=== PATIENT | female | born 1995 | race Hispanic/Latino ===

== ENCOUNTER 2016-11-22 17:23 | Emergency (ER) | payer SELFPAY ==
[2016-11-22 17:54] LABS: Bilirubin Small (Negative); Blood, Urine Negative (Negative); Glucose, Urine (Dipstick) >=1000 mg/dL (Negative); Ketone, Urine 80 mg/dL (Negative); Nitrite Negative (Negative); Protein, Urine (Dipstick) Negative (Neg-Trace); Urobilinogen 0.2 mg/dL (0.2-1.0)
[2016-11-22 18:34] LABS: Anion Gap 9 mmol/L (-14-95); T. Carbon Dioxide 23.7 mmol/L (1.0-85.0); pH (Venous) 7.377 (7.35-7.45); vO2 Saturation-calc 65.4 % (0.0-100.0)
[2016-11-22 18:35] LABS: #Eosinphils 0.1 thou/uL (0.0-0.7); #Lymphocytes 0.8 thou/uL (1.20-3.40); #Monocytes 0.5 thou/uL (0.11-0.59); #Neutrophils 6.1 thou/uL (1.40-6.50); %Basophils 0.2 % (0.0-1.0); %Eosinophils 0.7 % (0.0-10.0); %Lymphocytes 10.5 % (21.0-51.0); %Monocytes 6.6 % (0.0-10.0); Hematocrit 49.6 % (36.0-47.0); Mean Platelet Volume 8.4 fL (7.4-10.4); Red Blood Cell (RBC) Count 5.44 mill/uL (4.20-5.40); White Blood Cell (WBC) Count 7.4 thou/uL (4.8-10.8)
[2016-11-22 19:00] LABS: ALT (SGPT) 16 U/L (8-55); AST (SGOT) 14 U/L (5-34); Alkaline Phosphatase 106 U/L (40-150); Anion Gap 18 mmol/L (10-20); BUN (Urea Nitrogen) 12 mg/dL (7.0-18.7); Bilirubin, Total 1.1 mg/dL (0.2-1.2); Calc. Creatinine Clearance 0 mL/min (70-130); Calcium 9.8 mg/dL (7.8-10.44); Carbon Dioxide 20 mmol/L (22-29); Chloride 98 mmol/L (98-107); Estimated GFR-MDRD Greater than 90; Globulin 3.9 g/dL (2.4-3.5); Lipase 6 U/L (8-78); Protein, Total 8.2 g/dL (6.0-8.3)
== END 2016-11-22 19:49 | disposition home or self-care (01) ==
LOC: ERS 17:23
DX: K52.9 Noninfective gastroenteritis and colitis, unspecified (principal); E03.9 Hypothyroidism, unspecified; E10.9 Type 1 diabetes mellitus without complications; E66.9 Obesity, unspecified; Z79.4 Long term (current) use of insulin
CPT/HCPCS: 36415; 36416; 80053; 81003; 81025; 82010; 82330; 82803; 83690; 85025; 99284

== ENCOUNTER 2016-12-05 12:11 | Emergency (ER) | payer SELFPAY ==
[2016-12-05 12:57] LABS: Bilirubin Negative (Negative); Blood, Urine Negative (Negative); Glucose, Urine (Dipstick) >=1000 mg/dL (Negative); Ketone, Urine > or equal to 80 mg/dL (Negative); Nitrite Negative (Negative); Protein, Urine (Dipstick) Negative (Neg-Trace); Urobilinogen 0.2 mg/dL (0.2-1.0)
[2016-12-05 13:32] LABS: #Monocytes 0.3 thou/uL (0.11-0.59); #Neutrophils 7.7 thou/uL (1.40-6.50); %Basophils 0.3 % (0.0-1.0); %Eosinophils 0.2 % (0.0-10.0); %Lymphocytes 11.1 % (21.0-51.0); %Monocytes 3.4 % (0.0-10.0); Hematocrit 46.8 % (36.0-47.0); Mean Platelet Volume 8.8 fL (7.4-10.4); Red Blood Cell (RBC) Count 4.99 mill/uL (4.20-5.40); White Blood Cell (WBC) Count 9.1 thou/uL (4.8-10.8)
[2016-12-05 14:16] LABS: ALT (SGPT) 24 U/L (8-55); AST (SGOT) 16 U/L (5-34); Alkaline Phosphatase 127 U/L (40-150); Anion Gap 27 mmol/L (10-20); BUN (Urea Nitrogen) 13 mg/dL (7.0-18.7); Bilirubin, Total 0.8 mg/dL (0.2-1.2); Calc. Creatinine Clearance 0 mL/min (70-130); Calcium 9.3 mg/dL (7.8-10.44); Chloride 95 mmol/L (98-107); Estimated GFR-MDRD 60; Globulin 3.3 g/dL (2.4-3.5); Lipase 13 U/L (8-78); Protein, Total 7.5 g/dL (6.0-8.3)
[2016-12-05 14:18] LABS: Carbon Dioxide 9 mmol/L (22-29); Troponin I Less than 0.010 ng/mL (< 0.028)
[2016-12-05 14:34] LABS: Anion Gap 14 mmol/L (-14-95); T. Carbon Dioxide 12.8 mmol/L (1.0-85.0); pH (Venous) 7.167 (7.35-7.45); vO2 Saturation-calc 78.8 % (0.0-100.0)
[2016-12-05] MEDS ORDERED: Insulin Regular 300 UNITS/3 ML VIAL ONE (14:37)
--- NOTE | 2016-12-05 14:40 | RAD ---
RADIOGRAPH CHEST 1 VIEW: HISTORY: 21-year-old female with nausea and emesis. FINDINGS: There are no air space densities, pulmonary edema, pneumothorax, or cardiomegaly. The lateral costo phrenic angles are sharp. IMPRESSION: No acute cardiopulmonary findings. mariam POS: CAROLANN
[2016-12-05] MEDS ORDERED: Insulin Regular 100 units/100 ml in NS IVPB ONE (14:45)
[2016-12-05 16:42] LABS: Anion Gap 16 mmol/L (10-20); BUN (Urea Nitrogen) 10 mg/dL (7.0-18.7); Calc. Creatinine Clearance 0 mL/min (70-130); Calcium 8.9 mg/dL (7.8-10.44); Carbon Dioxide 17 mmol/L (22-29); Chloride 103 mmol/L (98-107); Estimated GFR-MDRD 87
== END 2016-12-05 17:25 | disposition left against medical advice (07) ==
LOC: ERS 12:11
DX: E10.10 Type 1 diabetes mellitus with ketoacidosis without coma (principal); E03.9 Hypothyroidism, unspecified; E66.9 Obesity, unspecified
CPT/HCPCS: 36415; 36416; 71010; 80053; 81003; 81025; 82010; 82330; 82553; 82803; 83690; 84484; 85025; 93005; 94760; 96365; 96366; 96376; J1815; J7050

== ENCOUNTER 2017-04-14 21:28 | Observation (INO) | payer MEDICAID, SELFPAY ==
[2017-04-14 22:43] LABS: ALT (SGPT) 13 U/L (8-55); AST (SGOT) 13 U/L (5-34); Albumin 4.3 g/dL (3.5-5.0); Alkaline Phosphatase 107 U/L (40-150); Anion Gap 16 mmol/L (10-20); BUN (Urea Nitrogen) 15 mg/dL (7.0-18.7); Bilirubin, Total 0.4 mg/dL (0.2-1.2); CK (CPK) 37 U/L (29-168); Calc. Creatinine Clearance 0 mL/min (70-130); Calcium 10.2 mg/dL (7.8-10.44); Carbon Dioxide 21 mmol/L (22-29); Chloride 100 mmol/L (98-107); Estimated GFR-MDRD 72; Globulin 3.7 g/dL (2.4-3.5); Glucose 357 mg/dL (70-105); Lipase 15 U/L (8-78); Magnesium 2.2 mg/dL (1.6-2.6); Potassium 3.9 mmol/L (3.5-5.1); Sodium 133 mmol/L (136-145)
[2017-04-14 22:45] LABS: Bilirubin Negative (Negative); Blood, Urine Negative (Negative); Clarity CLEAR (Clear); Glucose, Urine (Dipstick) >=1000 mg/dL (Negative); Leukocyte Negative (Negative); Nitrite Negative (Negative); Protein, Urine (Dipstick) Negative (Neg-Trace); Specific Gravity, Urine 1.028 (1.002-1.036); Urobilinogen 0.2 mg/dL (0.2-1.0)
[2017-04-14 22:46] LABS: CKMB 0.7 ng/mL (0-6.6); Troponin I Less than 0.010 ng/mL (< 0.028)
[2017-04-14 22:48] LABS: Pregnancy Test - Urine (BHCG) Negative (Negative); Pregu Control Background? CLEAR/WHITE (CLR/WHITE); Pregu Control Bar Appear? YES (CONTROL BAR); Specific Gravity 1.028 (1.002-1.036)
[2017-04-14 23:29] LABS: Hemoglobin A1c 12.4 % (4.0-6.0)
[2017-04-14] MEDS ORDERED: Insulin Regular 300 UNITS/3 ML VIAL ONE (23:31)
[2017-04-14 23:38] LABS: Base Excess-Venous -4.9 mmol/L (-30.0-30.0); Bicarbonate (HCO3v) 22.3 mmol/L (1.0-85.0); CO2 Tension (PvCO2) 47.7 mmHg (41.0-51.0); Calcium, Ionized 1.18 mmol/L (1.12-1.32); Hemoglobin - Calc 16.9 g/dL (12.0-18.0); O2 Tension (PvO2) 48.6 mmHg (35.0-45.0); Potassium 3.7 mmol/L (3.4-4.7); T. Carbon Dioxide 23.8 mmol/L (1.0-85.0); pH (Venous) 7.278 (7.35-7.45); vO2 Saturation-calc 78.4 % (0.0-100.0)
[2017-04-15] MEDS ORDERED: Dextrose 5% in Water 1,000 ML IV PRN (00:26)
[2017-04-15] MEDS ORDERED: HumaLOG 300 UNITS/3 ML VIAL SC PRN (00:26)
[2017-04-15] MEDS ORDERED: Dextrose 50% Abboject 50 ML SYRINGE SLOW IVP PRN (00:26)
[2017-04-15] MEDS ORDERED: Ondansetron PF 4 MG/2 ML Vial IVP PRN (00:28)
--- NOTE | 2017-04-15 02:25 | HP ---
PRIMARY CARE PHYSICIAN: [facility]. PRESENTING COMPLAINT: Vomiting. HISTORY OF PRESENT ILLNESS: A 22-year-old female with a history of brittle type 1 diabetes, who pres ented to the emergency room with multiple episodes of vomiting over the past couple of days, associat ed with nausea, palpitations, urinary frequency and mild shortness of breath. She states that she fe lt she was "going into DKA" and decided to come to the hospital. She denies fever, chills, abdominal pain. No history of chest pain. At the emergency room, her blood glucose was found to be 357. She also had a blood gas, which showed a pH of 7.278, pCO2 of 47.7 and pO2 of 48.6 (venous blood gas). Serum chemistry showed normal anion gap, carbon dioxide of 21 and sodium of 133 with potassium of 4.9 . She received 10 units of insulin regular and was admitted for hyperglycemia. PAST MEDICAL HISTORY: Type 1 diabetes mellitus. PAST SURGICAL HISTORY: and appendectomy. FAMILY HISTORY: Reviewed and noncontributory. SOCIAL HISTORY: Denies smoking cigarettes, drinking alcohol or using illicit drugs. ALLERGIES: PENICILLINS and SULFA MEDICATIONS. REVIEW OF SYSTEMS: Complete review of systems (10-point) was negative except as stated in HPI. PHYSICAL EXAMINATION: VITAL SIGNS: Stable. GENERAL: Not in acute distress, sitting comfortably in bed. HEENT: Normocephalic, atraumatic, EOMI, PERRLA, not pale, anicteric. Moist mucosa. CARDIOVASCULAR: S1 and S2 only. No murmurs, rubs or gallops. RESPIRATORY: Vesicular breath sounds bilaterally. No wheezes or rales. ABDOMEN: Soft, nontender, nondistended, bowel sounds normal. No hepatosplenomegaly. NEUROLOGIC: Alert and oriented to time, place and person. No focal deficits. SKIN: Warm, dry, well perfused. No rashes or lesions. MUSCULOSKELETAL: No skeletal abnormalities. Moves all extremities spontaneously. PSYCHIATRIC: Normal mood and affect. LABORATORY DATA: As stated in HPI. IMAGING: None. ASSESSMENT AND PLAN: 1. Hyperglycemia. The patient with a history of brittle diabetes mellitus, who has not been complet elton adherent with her home regimen and presenting with nausea, nonspecific symptoms and hyperglycemia . She has received subcutaneous insulin and blood glucose level is improving. We will admit under o bservation, give a bolus of IV fluids, and resume sliding scale insulin as well as her home regimen. We will monitor blood glucose before meals and at bedtime. Last hemoglobin A1c was 12.4 (04/14/2017 ). 2. Type 1 diabetes mellitus. Management as above. The patient will be educated on the importance o f using her insulin as directed.
[2017-04-15] MEDS ORDERED: Acetaminophen 325 MG TAB PO PRN (02:30)
[2017-04-15] MEDS ORDERED: Ibuprofen 600 MG TAB PO PRN (02:31)
[2017-04-15] MEDS: Sodium Chloride 0.9% 1,000 ML IV SCH ×3 (02:31→12:51)
[2017-04-15 03:35] VITALS: BMI 33.5
[2017-04-15 05:58] LABS: #Eosinphils 0.1 thou/uL (0.0-0.7); #Lymphocytes 2.6 thou/uL (1.20-3.40); #Monocytes 0.8 thou/uL (0.11-0.59); #Neutrophils 2.3 thou/uL (1.40-6.50); %Basophils 0.8 % (0.0-1.0); %Eosinophils 1.6 % (0.0-10.0); %Neutrophils 39.6 % (42.0-75.0); Mean Corpuscular HGB CONC 34.1 g/dL (32.0-36.0); Mean Corpuscular Hemoglobin 30.8 pg (27.0-31.0); Mean Corpuscular Volume 90.4 fl (81.0-99.0); Mean Platelet Volume 8.4 fL (7.4-10.4); Platelet Count 185 thou/uL (130-400); RBC Distribution Width 12.3 % (11.5-14.5); Red Blood Cell (RBC) Count 4.23 mill/uL (4.20-5.40); White Blood Cell (WBC) Count 5.8 thou/uL (4.8-10.8)
[2017-04-15 06:07] LABS: Anion Gap 9 mmol/L (10-20); BUN (Urea Nitrogen) 13 mg/dL (7.0-18.7); Calc. Creatinine Clearance 195 mL/min (70-130); Calcium 8.7 mg/dL (7.8-10.44); Carbon Dioxide 19 mmol/L (22-29); Chloride 108 mmol/L (98-107); Estimated GFR-MDRD Greater than 90; Glucose 194 mg/dL (70-105); Potassium 3.2 mmol/L (3.5-5.1); Sodium 133 mmol/L (136-145)
[2017-04-15] MEDS ORDERED: Potassium Chloride 40 MEQ in Sodium Chloride 0.9% 500 ML IVPB SCH (08:00)
[2017-04-15] MEDS ORDERED: Insulin Detemir 100 UNITS/ML 10 UNITS in Admixture Fee 1 EACH SC SCH (09:00)
[2017-04-15] MEDS ORDERED: Mupirocin 2% Ointment 22 GM Tube TOP SCH (09:00)
[2017-04-15] MEDS ORDERED: Insulin Detemir 100 UNITS/ML 30 UNITS in Pre-Filled Syringe 1 EACH SC SCH (09:00)
[2017-04-15] MEDS ORDERED: NPH, Human Insulin Isophane 300 UNIT/3 ML VIAL SC SCH (09:00)
[2017-04-15 10:53] VITALS: TEMP 99
[2017-04-15 12:05] VITALS: BP 116/70
[2017-04-15 12:39] LABS: Anion Gap 13 mmol/L (10-20); BUN (Urea Nitrogen) 11 mg/dL (7.0-18.7); Calc. Creatinine Clearance 164 mL/min (70-130); Calcium 8.8 mg/dL (7.8-10.44); Carbon Dioxide 19 mmol/L (22-29); Chloride 107 mmol/L (98-107); Estimated GFR-MDRD Greater than 90; Glucose 341 mg/dL (70-105); Magnesium 1.8 mg/dL (1.6-2.6); Phosphorus 3.5 mg/dL (2.3-4.7); Potassium 3.9 mmol/L (3.5-5.1); Sodium 135 mmol/L (136-145)
--- NOTE | 2017-04-15 13:37 | DIS ---
DATE OF ADMISSION: 04/14/2017 DATE OF DISCHARGE: 04/15/2017 CONDITION AT THE TIME OF DISCHARGE: Stable and improved. DISCHARGE DIAGNOSES: 1. Hyperglycemia and diabetes mellitus type 1, possibly early diabetic ketoacidosis. 2. Metabolic acidosis secondary to hyperglycemia and diabetes mellitus type 1. 3. Nausea. 4. Diabetes mellitus. DISCHARGE MEDICATIONS: Remain the same as home medication as follows: Humalog 5 units t.i.d. p.r.n. , Novolin N 50 units b.i.d., mupirocin ointment t.i.d. as needed. PRIMARY CARE PHYSICIAN: Luis Mancilla M.D. HOSPITAL COURSE: Ms. Trevino is a 22-year-old female with known history of diabetes mellmissy tus type 1 and diabetic ketoacidosis, who presented to the emergency room with complaints of vomiting , shortness of breath, nausea, palpitations, urinary frequency and felt that she was going into the D KA given her previous experiences. She was admitted with hyperglycemia with a blood sugar of more th an 350. She was mildly acidotic with bicarbonate of 21 without anion gap. She was not in diabetic k etoacidosis and was admitted under observation status on telemetry unit on IV fluids and insulin slid ing scale. Her hemoglobin A1c was found to be 12.4. HOSPITAL COURSE: The patient was continued on IV fluids and regular insulin and felt much better wit h resolution of her nausea. She never had any vomiting. Her potassium was low, which was supplement ed. I discussed her care with her and she reported that at one point of time she had the insulin pump wit h good control of her diabetes. Unfortunately, because of change of jobs and loss of insurance, she is not able to afford it anymore. She is, however, very regularly taking her Novolin N on a regular basis and she manages her blood sugars very carefully. She is getting it over the counter from [facility]. I encouraged her to go to [facility], Dr. Chávez, for reinstitution of her insulin pump a nd she will try. On the day of discharge, she is back to her baseline and her blood sugars have significantly improved . Her potassium level is 3.9. Her bicarbonate is still low at 19, but anion gap is 13. She will co ntinue to take her insulin and is eager to go home, so she will be discharged. PHYSICAL EXAMINATION: This morning include: VITAL SIGNS: Temperature 99, pulse 75, respirations 16, saturating 98% on room air, and blood pressu re 116/70. GENERAL: No acute distress, awake, alert, and oriented x3. CHEST: Clear to auscultation without any wheezing, rales or rhonchi. HEART: Rate and rhythm is regular. EXTREMITIES: She has a small scab on the right anterior gregory without any skin dehiscence or discharg e. She is instructed to put mupirocin on it and keep the area clean. At this time, she will be discharged back home with resumption of her home insulin. Discharge plan w as discussed with the patient, who verbalized understanding.
== END 2017-04-15 13:52 | disposition home or self-care (01) ==
LOC: ERS 21:28 → 2SW 04-15 01:58
PROVIDERS: ADMIT Internal Medicine; ATTEND Internal Medicine
DX: E10.10 Type 1 diabetes mellitus with ketoacidosis without coma (principal); Z88.0 Allergy status to penicillin; Z88.2 Allergy status to sulfonamides; Z88.5 Allergy status to narcotic agent; Z88.8 Allergy status to other drugs, medicaments and biological substances; Z91.018 Allergy to other foods; Z90.49 Acquired absence of other specified parts of digestive tract
CPT/HCPCS: 36415; 36416; 80048; 80053; 81003; 81025; 82010; 82330; 82553; 82803; 83036; 83690; 83735; 83930; 84100; 84484; 85014; 85025; 96360; 96361; 96365; 96366; 96372; G0378; J1815; J3480; J7050

== ENCOUNTER 2017-09-29 21:32 | Emergency (ER) | payer SELFPAY ==
[2017-09-29] MEDS ORDERED: Lidocaine 2% Jelly 5 ML TUBE ONE (22:38)
== END 2017-09-29 23:06 | disposition home or self-care (01) ==
LOC: ERS 21:32
DX: B00.9 Herpesviral infection, unspecified (principal); E66.9 Obesity, unspecified; E03.9 Hypothyroidism, unspecified; E10.9 Type 1 diabetes mellitus without complications; F32.9 Major depressive disorder, single episode, unspecified; Z79.4 Long term (current) use of insulin; Z79.899 Other long term (current) drug therapy
CPT/HCPCS: 99283

== ENCOUNTER 2017-10-09 20:01 | Inpatient (IN) | payer SELFPAY ==
[2017-10-09 21:32] LABS: Base Excess-Venous -11.5 mmol/L (0 (+/- 2.5)); Bicarbonate (HCO3v) 12.7 mmol/L (1.0-85.0); CO2 Tension (PvCO2) 25.7 mmHg (41.0-51.0); Calcium, Ionized 1.12 mmol/L (1.12-1.32); Hemoglobin - Calc 17.4 g/dL (12.0-18.0); O2 Tension (PvO2) 107.4 mmHg (35.0-45.0); Potassium 5.1 mmol/L (3.4-4.7); T. Carbon Dioxide 13.5 mmol/L (1.0-85.0); pH (Venous) 7.303 (7.35-7.45); vO2 Saturation-calc 97.8 % (94-98)
[2017-10-09 21:53] LABS: #Lymphocytes 1.1 thou/uL (1.20-3.40); #Monocytes 0.5 thou/uL (0.11-0.59); #Neutrophils 6.7 thou/uL (1.40-6.50); %Basophils 0.3 % (0.0-1.0); %Eosinophils 0.3 % (0.0-10.0); %Lymphocytes 13.3 % (21.0-51.0); %Monocytes 5.7 % (0.0-10.0); %Neutrophils 80.4 % (42.0-75.0); Mean Corpuscular HGB CONC 34.4 g/dL (32.0-36.0); Mean Corpuscular Hemoglobin 30.1 pg (27.0-31.0); Mean Corpuscular Volume 87.5 fL (78.0-98.0); Mean Platelet Volume 8.2 fL (7.4-10.4); Platelet Count 207 thou/uL (130-400); RBC Distribution Width 12.1 % (11.5-14.5); Red Blood Cell (RBC) Count 5.33 mill/uL (4.20-5.40); White Blood Cell (WBC) Count 8.3 thou/uL (4.8-10.8)
[2017-10-09 22:15] LABS: ALT (SGPT) 31 U/L (8-55); AST (SGOT) 14 U/L (5-34); Albumin 4.9 g/dL (3.5-5.0); Alkaline Phosphatase 126 U/L (40-150); Anion Gap 28 mmol/L (10-20); BUN (Urea Nitrogen) 33 mg/dL (7.0-18.7); Bilirubin, Total 0.6 mg/dL (0.2-1.2); Calc. Creatinine Clearance 0 mL/min (70-130); Calcium 10.6 mg/dL (7.8-10.44); Carbon Dioxide 12 mmol/L (22-29); Chloride 97 mmol/L (98-107); Estimated GFR-MDRD 57; Globulin 4.1 g/dL (2.4-3.5); Glucose 385 mg/dL (70-105); Magnesium 2.2 mg/dL (1.6-2.6); Phosphorus 5.4 mg/dL (2.3-4.7); Potassium 5.4 mmol/L (3.5-5.1); Sodium 132 mmol/L (136-145)
[2017-10-09] MEDS ORDERED: Insulin Regular 100 units/100 ml in NS IVPB SCH (22:45)
[2017-10-09] MEDS ORDERED: Aspirin/APAP/Caffeine Tab (Excedrin Migraine) PO SCH (23:00)
[2017-10-09 23:06] LABS: Bilirubin Moderate (Negative); Blood, Urine Negative (Negative); Clarity CLOUDY (Clear); Glucose, Urine (Dipstick) 250 mg/dL (Negative); Leukocyte Moderate (Negative); Nitrite Negative (Negative); Protein, Urine (Dipstick) 100 mg/dL (Neg-Trace); Specific Gravity, Urine 1.023 (1.002-1.036); Urobilinogen 0.2 mg/dL (0.2-1.0)
[2017-10-09 23:08] LABS: Bacteria/HPF 1+ HPF (None Seen); Pathc Cast-AUWi Flag 1.59 (0-2.49); RBC/HPF 0-3 HPF (0-3); Yeast-AUWi Flag 21.2 (0-25.0)
[2017-10-09 23:09] LABS: Hyaline Casts/LPF 4-6 HYALINE CAST LPF (0-3 Hyaline)
[2017-10-10] MEDS ORDERED: Dextrose 5 %-0.45 % NaCl 1,000 ML IV PRN (01:08)
[2017-10-10] MEDS ORDERED: Sodium Chloride 0.9% 1,000 ML IV PRN ×4 (01:08)
[2017-10-10] MEDS ORDERED: D5 1/2 NS w/20 mEq KCL 1,000 ML IV PRN (01:08)
[2017-10-10] MEDS ORDERED: CCU Electrolyte Replacement 1 EACH IVPB ONE (01:08)
[2017-10-10] MEDS ORDERED: NS 0.9% w/ 20 MEQ KCL 1,000 ML IV PRN ×2 (01:08)
[2017-10-10] MEDS ORDERED: Milk Of Magnesia 30 ML UDCUP PO PRN (01:09)
[2017-10-10] MEDS ORDERED: Ondansetron ODT 4 MG TAB PO PRN (01:09)
[2017-10-10] MEDS ORDERED: Calcium Carbonate 500 MG ChewTAB PO PRN (01:09)
[2017-10-10] MEDS ORDERED: Mag-Al 1200 mg/1200 mg/30 ML UDCUP PO PRN (01:09)
[2017-10-10] MEDS ORDERED: Ondansetron HCl/PF 4 MG/2 ML Vial IVP PRN (01:09)
[2017-10-10] MEDS ORDERED: Senokot 8.6 MG TAB PO PRN (01:09)
[2017-10-10 01:33] LABS: BHCG - Serum Negative (NEGATIVE); Pregs Control Background? CLEAR/WHITE (CLR/WHITE); Pregs Control Bar Appear? YES (CONTROL BAR)
[2017-10-10] MEDS ORDERED: Potassium Phosphate 9 MMOL in Sodium Chloride 0.9% 100 ML IVPB PRN (01:36)
[2017-10-10] MEDS ORDERED: Magnesium Oxide 400 MG TAB PO PRN ×2 (01:36)
[2017-10-10] MEDS ORDERED: Potassium Chloride 20 MEQ TAB PO PRN (01:36)
[2017-10-10] MEDS ORDERED: Potassium Phosphate 15 MMOL in Sodium Chloride 0.9% 250 ML 250 ML IV PRN (01:36)
[2017-10-10] MEDS ORDERED: Magnesium 2 GM/NS 0.9% 100 ML 2 GM in Premix Bag 1 BAG IVPB PRN (01:36)
[2017-10-10] MEDS ORDERED: Potassium Phosphate 12 MMOL in Sodium Chloride 0.9% 250 ML 250 ML IV PRN (01:36)
[2017-10-10] MEDS ORDERED: Potassium Chloride 40 MEQ in Sodium Chloride 0.9% 250 ML 250 ML IVPB PRN (01:36)
[2017-10-10] MEDS ORDERED: CCU ELECTROLYTE REPLACEMENT PROTOCOL FS PRN (01:36)
[2017-10-10] MEDS ORDERED: Potassium Chloride 40 MEQ in Premix Bag 1 BAG IVPB PRN (01:36)
[2017-10-10 02:15] LABS: Anion Gap 26 mmol/L (10-20); BUN (Urea Nitrogen) 26 mg/dL (7.0-18.7); Calc. Creatinine Clearance 0 mL/min (70-130); Calcium 9.7 mg/dL (7.8-10.44); Chloride 102 mmol/L (98-107); Estimated GFR-MDRD 65; Glucose 405 mg/dL (70-105); Sodium 132 mmol/L (136-145)
[2017-10-10 02:57] LABS: Carbon Dioxide 9 mmol/L (22-29)
[2017-10-10] MEDS ORDERED: Lidocaine 1% PF 5 ML VIAL ONE ×2 (03:33→03:34)
[2017-10-10] MEDS ORDERED: Ondansetron ODT 4 MG TAB ONE (05:48)
[2017-10-10 06:09] LABS: Anion Gap 22 mmol/L (10-20); BUN (Urea Nitrogen) 24 mg/dL (7.0-18.7); Calc. Creatinine Clearance 0 mL/min (70-130); Calcium 9.4 mg/dL (7.8-10.44); Chloride 105 mmol/L (98-107); Estimated GFR-MDRD 73; Glucose 305 mg/dL (70-105); Potassium 4.3 mmol/L (3.5-5.1); Sodium 132 mmol/L (136-145)
[2017-10-10 06:18] LABS: Carbon Dioxide 9 mmol/L (22-29)
--- NOTE | 2017-10-10 07:04 | HP ---
CHIEF COMPLAINT: Nausea with elevated blood sugar. HISTORY OF PRESENT ILLNESS: The patient is a 22-year-old female with brittle type 1 diabetes, presen lola to the hospital with above complaints. The patient has a long history of diabetes mellitus type 1. She is currently on 65 units Lantus twic e a day along with sliding scale. She denies any noncompliance with her insulin. She started notici ng that her blood sugars were running high in 300s range. She also felt nauseous and had several epi sodes of vomiting. There was mild abdominal cramping; however, she denies any diarrhea, constipation , hematemesis, dysuria, hematuria, urgency, altered mentation, chest pain, or focal neurologic defici t. In the emergency room, her vital signs showed temperature 98.9, respiration 18, pulse rate of 115 wit h a blood pressure 141/91 with O2 saturation 96% on room air. Her workup was consistent with diabeti c ketoacidosis with ketones of 7.69, bicarbonate of 12, potassium 5.4 with sodium 132. Her BUN was e levated at 33 with creatinine 1.1. She was started on insulin drip per diabetic ketoacidosis protoco l. PAST MEDICAL HISTORY: 1. Brittle type 1 diabetes. 2. History of diabetic ketoacidosis in the past. The last episode at this facility was in 04/08. 3. Hypothyroidism. PAST SURGICAL HISTORY: 1. . 2. Appendectomy. ALLERGIES: Patient is allergic to PENICILLIN and SULFA. MEDICATIONS: As discussed above. She also takes levothyroxine. SOCIAL HISTORY: No smoking, alcohol, or drug use. FAMILY HISTORY: Negative for heart disease. REVIEW OF SYSTEMS: The following complete review of systems was negative, unless otherwise mentioned in the HPI or below: Constitutional: Weight loss or gain, ability to conduct usual activities. Sk in: Rash, itching. Eyes: Double vision, pain. ENT/Mouth: Nose bleeding, neck stiffness, pain, te nderness. Cardiovascular: Palpitations, dyspnea on exertion, orthopnea. Respiratory: Shortness of breath, wheezing, cough, hemoptysis, fever or night sweats. Gastrointestinal: Poor appetite, abdom inal pain, heartburn, nausea, vomiting, constipation, or diarrhea. Genitourinary: Urgency, frequenc y, dysuria, nocturia. Musculoskeletal: Pain, swelling. Neurologic/Psychiatric: Anxiety, depressio n. Allergy/Immunologic: Skin rash, bleeding tendency. PHYSICAL EXAMINATION: VITAL SIGNS: As discussed above. GENERAL: A 22-year-old female in mild distress due to generalized weakness as well as abdominal cram ping. HEENT: Head atraumatic, normocephalic. Sclerae are anicteric. Dry mucous membrane. No oral lesion . NECK: Supple. No JVD, no carotid bruit. LUNGS: Clear to auscultation bilaterally. No wheezing, rales, or rhonchi. HEART: S1, S2 present. Regular rate and rhythm. No murmur, rubs, or gallops. ABDOMEN: Soft. Bowel sounds present. There was mild tenderness on deep palpation. There was no re bound or guarding. EXTREMITIES: No edema or calf tenderness. NEUROLOGIC: Grossly nonfocal. Moves all four extremities. PSYCHIATRY: Alert, awake, oriented x3. SKIN: Warm and dry. LYMPH NODES: No palpable lymph nodes in the neck. PERIPHERAL VASCULAR: Radial pulses palpable bilaterally. MUSCULOSKELETAL: No joint swelling or tenderness. LABORATORY AND X-RAY FINDINGS: As discussed above. Urinalysis showed 11-20 wbc's with 1+ bacteria. Sodium was 132 with potassium of 5.4, chloride of 97. EKG by my review showed sinus tachycardia wit hout significant ST-T wave changes. IMPRESSION: 1. Diabetic ketoacidosis. 2. History of diabetes mellitus type 1. 3. Acute kidney injury secondary to dehydration. 4. Hyperkalemia secondary to metabolic acidosis. 5. Hyponatremia, probably secondary to hyperglycemia. 6. Dehydration. 7. Suspected urinary tract infection. 8. Nausea and vomiting secondary to diabetic ketoacidosis. PLAN: Patient will be monitored in the IMCU. Insulin drip will be continued. We will continue aggr essive IV hydration. Empiric antibiotics for UTI. Deep venous thrombosis prophylaxis. A central li ne was placed in the emergency room due to lack of IV access. Repeat base met every 4 hourly. Plan of care was discussed with the patient in detail. She stated understanding.
[2017-10-10] MEDS ORDERED: Acetaminophen 325 MG TAB ONE (08:31)
--- NOTE | 2017-10-10 08:40 | RAD ---
CHEST 1 VIEW: Date: 10/10/17 HISTORY: 22-year-old female with history of central line placement. COMPARISON: 12/05/16. FINDINGS: Right jugulovenous catheter has been placed with the tip of the line extending down to near the regio n of the right atrium. No pneumothorax or pleural effusion, or other acute intrathoracic disease. IMPRESSION: Jugulovenous catheter right central line placement with the tip extending down to near the region of the right atrium. POS: OFF
[2017-10-10 10:38] LABS: Anion Gap 15 mmol/L (10-20); BUN (Urea Nitrogen) 21 mg/dL (7.0-18.7); Calc. Creatinine Clearance 0 mL/min (70-130); Calcium 9.1 mg/dL (7.8-10.44); Carbon Dioxide 17 mmol/L (22-29); Chloride 108 mmol/L (98-107); Estimated GFR-MDRD 88; Glucose 88 mg/dL (70-105); Potassium 4.7 mmol/L (3.5-5.1); Sodium 135 mmol/L (136-145)
[2017-10-10] MEDS ORDERED: NPH, Human Insulin Isophane 300 UNIT/3 ML VIAL SC STA (10:55)
[2017-10-10] MEDS ORDERED: Dextrose 5% in Water 1,000 ML IV PRN (10:56)
[2017-10-10] MEDS ORDERED: HumaLOG 300 UNITS/3 ML VIAL SC PRN (10:56)
[2017-10-10] MEDS ORDERED: Dextrose 50% Abboject 50 ML SYRINGE SLOW IVP PRN (10:56)
[2017-10-10] MEDS: Sodium Chloride 0.45% 1,000 ML IV SCH ×2 (11:25→18:14)
[2017-10-10] MEDS: Famotidine 20 MG TAB PO SCH ×2 (11:27→20:07)
[2017-10-10] MEDS: Heparin 5,000 UNITS/ML VIAL SC SCH ×2 (11:28→20:09)
[2017-10-10 12:20] VITALS: BMI 34.4
[2017-10-10] MEDS: HumaLOG 300 UNITS/3 ML VIAL SC PRN (12:37)
[2017-10-10] MEDS: Acetaminophen 325 MG TAB PO PRN ×2 (12:49→20:06)
[2017-10-10] MEDS ORDERED: Prevnar 13-Val Conj/PF 0.5 ML SYRINGE IM ONE (13:30)
--- NOTE | 2017-10-10 14:27 | PDOC.PN ---
- Subjective Encounter Start Date: 10/10/17 Encounter Start Time: 12:00 Subjective: is awake, no sob or trouble urinating -: no chest pain -: says she is compliant with insulin regimen at home - Objective Resuscitation Status: Resuscitation Status FULL:Full Resuscitation MAR Reviewed: Yes Vital Signs & Weight: Vital Signs (12 hours) Temp Pulse Resp Pulse Ox 10/10/17 12:00 98.9 F 10/10/17 09:10 98.2 F 88 16 100 Weight Weight 188 lb 0.869 oz Most Recent Monitor Data Heart Rate from ECG 85 NIBP 110/75 NIBP BP-Mean 84 Respiration from ECG 20 SpO2 100 I&O: 10/09/17 10/10/17 10/11/17 06:59 06:59 06:59 Intake Total 680 Balance 680 Result Diagrams: 10/09/17 21:14 10/10/17 09:21 Additional Labs: Accuchecks 10/10/17 10/10/17 10/10/17 12:35 11:25 10:24 POC Glucose 184 H 140 H 104 10/10/17 10/10/17 10/10/17 09:23 08:38 07:42 POC Glucose 84 111 H 161 H 10/10/17 10/10/17 10/10/17 06:21 05:22 04:23 POC Glucose 223 H 263 H 276 H 10/10/17 10/10/17 10/10/17 03:19 01:47 00:51 POC Glucose 308 H 374 H 348 H 10/09/17 10/09/17 23:36 20:10 POC Glucose 301 H 277 H Phys Exam - Physical Examination HEENT: PERRLA, moist MMs Neck: no JVD, supple Respiratory: no wheezing, no rales Cardiovascular: RRR, no significant murmur Gastrointestinal: soft, non-tender, no distention, positive bowel sounds Musculoskeletal: no edema, pulses present Neurological: non-focal, moves all 4 limbs Psychiatric: normal affect, A&O x 3 Dx/Plan (1) DKA (diabetic ketoacidoses) Code(s): E13.10 - OTH DIABETES MELLITUS WITH KETOACIDOSIS WITHOUT COMA Status : Acute Qualifiers: Diabetes mellitus type: type 1 Diabetes mellitus complication detail: without coma Qualified Code(s): E10.10 - Type 1 diabetes mellitus with ketoacidosis without coma (2) Metabolic acidosis Code(s): E87.2 - ACIDOSIS Status: Acute (3) Obesity (BMI 30.0-34.9) Code(s): E66.9 - OBESITY, UNSPECIFIED Status: Chronic - Plan gap is closing down, is coming off insulin drip -: to start home dose lantus and coverage -: continue iv fluids for another 24hrs -: will watch for electrolytes -: dc plan in am, june tx to med floor * . Review of Systems - Medications/Allergies Allergies/Adverse Reactions: Allergies Allergy/AdvReac Type Severity Reaction Status Date / Time blueberry Allergy Unknown Hives Verified 04/15/17 03:32 morphine Allergy Unknown Rash Verified 04/15/17 03:32 amoxicillin Allergy Rash Verified 04/15/17 03:32 Penicillins Allergy Rash Verified 04/15/17 03:32 Sulfa (Sulfonamide Allergy Rash Verified 04/15/17 03:32 Antibiotics) sulfamethoxazole Allergy Rash Verified 04/15/17 03:32 [From Bactrim] trimethoprim [From Bactrim] Allergy Rash Verified 04/15/17 03:32 Medications: Current Medications Acetaminophen (Tylenol) 650 mg PO Q4H PRN PRN Reason: Headache/Fever or Pain Last Admin: 10/10/17 12:49 Dose: 650 mg Al Hydroxide/Mg Hydroxide (Maalox) 30 ml PO Q6H PRN PRN Reason: Heartburn or Indigestion Calcium Carbonate (Tums) 1,000 mg PO Q4H PRN PRN Reason: Heartburn or Indigestion Famotidine (Pepcid) 20 mg PO BID [facility] Last Admin: 10/10/17 11:27 Dose: 20 mg Glucagon (Glucagon) 1 mg IM PRN PRN PRN Reason: Hypoglycemia Heparin Sodium (Porcine) (Heparin) 5,000 units SC BID [facility] Last Admin: 10/10/17 11:28 Dose: 5,000 units Levofloxacin 500 mg/ Device 100 mls @ 100 mls/hr IVPB Q24HR [facility] Insulin Glargine 65 units/ (Miscellaneous Medication) 0.65 mls @ 0 mls/hr SC BID [facility] Sodium Chloride (1/2 Normal Saline) 1,000 mls @ 100 mls/hr IV .Q10H [facility] Last Admin: 10/10/17 11:25 Dose: 1,000 mls Insulin Human Lispro (Humalog) 0 units SC .AGGRESSIVE SLIDING PRN PRN Reason: Aggressive Correctional Scale Last Admin: 10/10/17 12:37 Dose: 3 units Insulin Human Lispro (Humalog) 0 units SC .BEDTIME SLIDING SC PRN PRN Reason: Bedtime Correctional Scale Ondansetron HCl (Zofran Odt) 4 mg PO Q6H PRN PRN Reason: Nausea/Vomiting Ondansetron HCl (Zofran) 4 mg IVP Q6H PRN PRN Reason: Nausea/Vomiting Senna (Senokot) 2 tab PO HSPRN PRN PRN Reason: Constipation Sodium Chloride (Flush - Normal Saline) 10 ml IVF Q12HR ELANA Last Admin: 10/10/17 11:28 Dose: 10 ml Sodium Chloride (Flush - Normal Saline) 10 ml IVF PRN PRN PRN Reason: Saline Flush
--- NOTE | 2017-10-10 15:53 | CON ---
DATE OF CONSULTATION: 10/10/2017 CONSULTING PHYSICIAN: Hospitalist group. REASON FOR CONSULTATION: Diabetic ketoacidosis - mandatory ICU consult. HISTORY OF PRESENT ILLNESS: This is a 22-year-old female, who presented last night DKA with blood velez gars in the 300s with a wide anion gap and ketones in the urine. She was placed on insulin drip per DKA protocol. The patient states she has been under intense stress lately. PAST MEDICAL HISTORY: 1. Diabetes mellitus type 1 diagnosed at age 15. 2. Multiple episodes of diabetic ketoacidosis in the past, hypothyroidism. 3. Recent diagnosis of cervical neoplasia in situ. PAST SURGICAL HISTORY: C-sections, appendectomy. ALLERGIES: PENICILLIN and SULFA. MEDICATIONS: She takes Lantus 65 units twice daily along with sliding scale. SOCIAL HISTORY: Nonsmoker, nondrinker. Does not use illicit drugs. She works at [employer]. FAMILY MEDICAL HISTORY: Unremarkable. REVIEW OF SYSTEMS: A 12-point review of systems was negative. PHYSICAL EXAMINATION: VITAL SIGNS: Temperature 98.2, pulse 92, blood pressure 122/62, O2 sat 98%, and respiratory rate 20. GENERAL: The patient is awake and alert and in no distress. HEENT: Unremarkable. NECK: Without adenopathy, JVD, or bruits. LUNGS: Clear anteriorly bilaterally. CARDIOVASCULAR: S1 and S2, regular, without murmur. ABDOMEN: Soft, nontender. EXTREMITIES: No clubbing, cyanosis, or edema. LABORATORY DATA: Sodium 135, potassium 4.7, chloride 108, CO2 of 17, BUN 21, creatinine 0.8, glucose 88. Current anion gap is 10. Last glucose 104, white blood cell count 8.3, hematocrit 46.6, platel et count 207. Beta hydroxybutyrate was 2. ASSESSMENT: 1. Diabetic now with closed anion gap. 2. Diabetes mellitus type 1. PLAN: 1. Convert over to her long-acting insulin regimen by tonight. 2. Continue with half normal saline. 3. Can probably transfer to floor later today.
[2017-10-10 18:30] LABS: Anion Gap 12 mmol/L (10-20); BUN (Urea Nitrogen) 14 mg/dL (7.0-18.7); Calc. Creatinine Clearance 168 mL/min (70-130); Carbon Dioxide 18 mmol/L (22-29); Chloride 106 mmol/L (98-107); Estimated GFR-MDRD Greater than 90; Glucose 110 mg/dL (70-105); Potassium 3.9 mmol/L (3.5-5.1); Sodium 132 mmol/L (136-145)
[2017-10-10] MEDS: Insulin Glargine 65 UNITS in Pre-Filled Syringe 1 EACH SC SCH (20:10)
[2017-10-10] MEDS ORDERED: HYDROcodone/Acetaminophen 5/325 mg Tablet PO PRN (22:08)
[2017-10-10] MEDS: HYDROcodone/Acetaminophen 5/325 mg Tablet PO PRN (22:20)
[2017-10-11] MEDS: HYDROcodone/Acetaminophen 5/325 mg Tablet PO PRN (03:43)
[2017-10-11 04:17] LABS: #Eosinphils 0.1 thou/uL (0.0-0.7); #Lymphocytes 2.2 thou/uL (1.20-3.40); #Monocytes 0.4 thou/uL (0.11-0.59); #Neutrophils 2.1 thou/uL (1.40-6.50); %Basophils 0.6 % (0.0-1.0); %Eosinophils 1.1 % (0.0-10.0); %Lymphocytes 45.9 % (21.0-51.0); %Monocytes 8.4 % (0.0-10.0); Hemoglobin 12.4 g/dL (12.0-16.0); Mean Corpuscular HGB CONC 34.7 g/dL (32.0-36.0); Mean Corpuscular Hemoglobin 30.7 pg (27.0-31.0); Mean Corpuscular Volume 88.4 fL (78.0-98.0); Mean Platelet Volume 7.7 fL (7.4-10.4); Platelet Count 146 thou/uL (130-400); RBC Distribution Width 12.1 % (11.5-14.5); Red Blood Cell (RBC) Count 4.05 mill/uL (4.20-5.40); White Blood Cell (WBC) Count 4.8 thou/uL (4.8-10.8)
[2017-10-11 04:40] LABS: Anion Gap 10 mmol/L (10-20); BUN (Urea Nitrogen) 13 mg/dL (7.0-18.7); Calc. Creatinine Clearance 151 mL/min (70-130); Calcium 8.7 mg/dL (7.8-10.44); Carbon Dioxide 23 mmol/L (22-29); Chloride 103 mmol/L (98-107); Estimated GFR-MDRD Greater than 90; Glucose 359 mg/dL (70-105); Sodium 132 mmol/L (136-145)
[2017-10-11] MEDS: HumaLOG 300 UNITS/3 ML VIAL SC PRN ×2 (05:34→12:34)
[2017-10-11] MEDS: Sodium Chloride 0.45% 1,000 ML IV SCH (05:36)
[2017-10-11] MEDS: Famotidine 20 MG TAB PO SCH (08:28)
[2017-10-11] MEDS: Heparin 5,000 UNITS/ML VIAL SC SCH (08:29)
[2017-10-11] MEDS: Insulin Glargine 65 UNITS in Pre-Filled Syringe 1 EACH SC SCH (08:29)
--- NOTE | 2017-10-11 12:39 | PDOC.PN ---
- Subjective Encounter Start Date: 10/11/17 Encounter Start Time: 07:25 Subjective: feels better - Objective Resuscitation Status: Resuscitation Status FULL:Full Resuscitation MAR Reviewed: Yes Vital Signs & Weight: Vital Signs (12 hours) Temp Pulse Resp BP Pulse Ox 10/11/17 11:51 98.4 F 66 18 128/85 96 10/11/17 08:00 97.9 F 68 16 128/80 95 Weight Weight 188 lb 0.869 oz Most Recent Monitor Data Heart Rate from ECG 85 NIBP 110/75 NIBP BP-Mean 84 Respiration from ECG 20 SpO2 100 I&O: 10/10/17 10/11/17 10/12/17 06:59 06:59 06:59 Intake Total 2064 Balance 2064 Result Diagrams: 10/11/17 03:54 10/11/17 03:54 Additional Labs: Accuchecks 10/11/17 10/11/17 10/10/17 10:56 04:08 19:27 POC Glucose 209 H 292 H 263 H 10/10/17 10/10/17 16:55 12:35 POC Glucose 106 184 H Phys Exam - Physical Examination HEENT: PERRLA, moist MMs Neck: no JVD, supple Respiratory: no wheezing, no rales Cardiovascular: RRR, no significant murmur Gastrointestinal: soft, no distention, positive bowel sounds Musculoskeletal: no edema, pulses present Neurological: non-focal, moves all 4 limbs Psychiatric: normal affect, A&O x 3 Dx/Plan (1) DKA (diabetic ketoacidoses) Code(s): E13.10 - OTH DIABETES MELLITUS WITH KETOACIDOSIS WITHOUT COMA Status : Resolved Qualifiers: Diabetes mellitus type: type 1 Diabetes mellitus complication detail: without coma Qualified Code(s): E10.10 - Type 1 diabetes mellitus with ketoacidosis without coma (2) Metabolic acidosis Code(s): E87.2 - ACIDOSIS Status: Resolved (3) Obesity (BMI 30.0-34.9) Code(s): E66.9 - OBESITY, UNSPECIFIED Status: Chronic - Plan hemostable -: may dc home if her mild abd colic is resolved and has passed bm -: to f/u with her PCP in 1 week * .
[2017-10-11] MEDS ORDERED: Bisacodyl 10 MG SUPP PR PRN (12:40)
[2017-10-11 15:29] VITALS: BP 113/73; TEMP 98.1
--- NOTE | 2017-10-11 22:26 | DIS ---
DATE OF ADMISSION: 10/10/2017 DATE OF DISCHARGE: 10/11/2017 DISCHARGE DISPOSITION: To home. PRIMARY DISCHARGE DIAGNOSES: Diabetic ketoacidosis, diabetes mellitus type 1, metabolic acidosis, ob esity. PROCEDURES DONE DURING HOSPITALIZATION: Chest x-ray done showed no acute infiltrate. Urine culture grew Enterococcus less than 5000 colony forming units per mL. H&H 12 and 35, platelet count 146. In itial serum bicarbonate was 12. Serum glucose of 385 on the day of admission. test was ne gative. Discharge serum bicarbonate is 23. Beta hydroxybutyrate levels were 7.69 on the day of admi ssion. DISCHARGE MEDICATIONS: The patient to continue NPH 50 units subcu twice daily and Humalog 5 units velez bcu 3 times daily, Levaquin 500 mg p.o. daily for another 4 days. ALLERGIES: Allergic to MORPHINE, AMOXICILLIN, PENICILLIN, SULFA, BLUEBERRY. DISCHARGE PLAN: The patient to follow up with primary care physician in 1 week. BRIEF COURSE DURING HOSPITALIZATION: The patient initially got admitted on the with complaints of nausea and elevated blood sugars at home. On arrival, the patient had beta hydroxybutyrate levels of 7.69 with serum sugars running more than 300 and serum bicarbonate of 12. She was placed on insu angel drip and admitted to [facility] under DKA protocol. The patient has responded well to above measures. She was empirically placed on Levaquin. Her urine cultures have grown less than 5000 colony forming Enterococcus. In view of her presenting symptoms and DKA with the patient being compliant with her medication, she is advised to continue Levaquin for another 4 days. She has remained hemodynamically stable, ambulating and eating well prior to discharge. Please see a [id number] documentation on [facility] [employer] for the day of discharge.
--- NOTE | 2017-10-13 16:56 | EKG ---
Test Reason : Blood Pressure : / mmHG Vent. Rate : 120 BPM Atrial Rate : 120 BPM P-R Int : 132 ms QRS Dur : 078 ms QT Int : 324 ms P-R-T Axes : 069 063 051 degrees QTc Int : 457 ms Sinus tachycardia Otherwise normal ECG Confirmed by AURA BLACK DO ([id number]), rewrite editor JOAQUIN ARAIZA ([id number]) on 10/13/2017 4:56:25 PM Referred By: Confirmed By:AURA BLACK DO
== END 2017-10-11 16:36 | disposition home or self-care (01) | DRG 638 ==
LOC: ERS 20:01 → ERHOLD 10-10 00:35 → CCU 10-10 09:05 → T4-B 10-10 15:08
PROVIDERS: ADMIT Internal Medicine; ATTEND Internal Medicine
DX: E10.10 Type 1 diabetes mellitus with ketoacidosis without coma (principal); N17.9 Acute kidney failure, unspecified; E87.1 Hypo-osmolality and hyponatremia; E66.9 Obesity, unspecified; Z88.1 Allergy status to other antibiotic agents; Z88.5 Allergy status to narcotic agent; Z88.0 Allergy status to penicillin; Z88.2 Allergy status to sulfonamides; Z91.018 Allergy to other foods; E03.9 Hypothyroidism, unspecified; D49.59 Neoplasm of unspecified behavior of other genitourinary organ; E87.5 Hyperkalemia; E86.0 Dehydration; Z68.34 Body mass index [BMI] 34.0-34.9, adult
CPT/HCPCS: 36415; 36416; 71045; 80048; 80053; 81003; 81015; 82010; 82330; 82803; 83735; 84100; 84703; 85025; 87086; 93005; J1644; J1815; J1956; J2001; J7050; Q0162

== ENCOUNTER 2018-03-23 16:11 | Inpatient (IN) | payer SELFPAY ==
[2018-03-23 16:44] LABS: Hemoglobin 17.3 g/dL (12.0-16.0); Mean Corpuscular HGB CONC 32.7 g/dL (32.0-36.0); Mean Corpuscular Volume 88.5 fL (78.0-98.0); RBC Distribution Width 12.1 % (11.5-14.5); Red Blood Cell (RBC) Count 5.99 mill/uL (4.20-5.40); White Blood Cell (WBC) Count 9.1 thou/uL (4.8-10.8)
[2018-03-23 16:54] LABS: ALT (SGPT) 21 U/L (8-55); AST (SGOT) 15 U/L (5-34); Albumin 4.9 g/dL (3.5-5.0); Alkaline Phosphatase 122 U/L (40-150); Anion Gap 20 mmol/L (10-20); BUN (Urea Nitrogen) 15 mg/dL (7.0-18.7); Bilirubin, Total 0.7 mg/dL (0.2-1.2); Calc. Creatinine Clearance 0 mL/min (70-130); Calcium 10.5 mg/dL (7.8-10.44); Carbon Dioxide 16 mmol/L (22-29); Chloride 98 mmol/L (98-107); Estimated GFR-MDRD 61; Globulin 4.5 g/dL (2.4-3.5); Glucose 318 mg/dL (70-105); Phosphorus 3.4 mg/dL (2.3-4.7); Potassium 4.6 mmol/L (3.5-5.1); Protein, Total 9.4 g/dL (6.0-8.3); Sodium 129 mmol/L (136-145)
[2018-03-23 17:20] LABS: Band 4 % (5-11); Lymphocytes 17 % (21-51); MDiff Complete? YES; Mean Platelet Volume 9.1 fL (7.4-10.4); Monocytes 13 % (0-10); Neutrophil 66 % (42-75); Platelet Morphology Comment PLT clumps seen-ADEQ
[2018-03-23 18:57] LABS: Bilirubin Large (Negative); Blood, Urine Negative (Negative); Clarity CLOUDY (Clear); Glucose, Urine (Dipstick) >=1000 mg/dL (Negative); Leukocyte Negative (Negative); Nitrite Negative (Negative); Protein, Urine (Dipstick) 100 mg/dL (Neg-Trace); Specific Gravity, Urine 1.034 (1.002-1.036)
[2018-03-23 18:59] LABS: Hyaline Casts/LPF 7-10 HYALINE CAST LPF (0-3 Hyaline)
[2018-03-23 19:11] LABS: Bacteria/HPF 1+ HPF (None Seen); RBC/HPF 0-3 HPF (0-3); Transitional Epithelial 0-3 HPF (0-3)
[2018-03-23] MEDS ORDERED: Sodium Chloride 0.9% 1,000 ML IV PRN ×4 (20:33)
[2018-03-23] MEDS ORDERED: Dextrose 5 %-0.45 % NaCl 1,000 ML IV PRN (20:33)
[2018-03-23] MEDS ORDERED: NS 0.9% w/ 20 MEQ KCL 1,000 ML/1,000 ML BAG IV PRN ×2 (20:33)
[2018-03-23] MEDS ORDERED: D5 1/2 NS w/20 mEq KCL 1,000 ML IV PRN (20:33)
[2018-03-23] MEDS ORDERED: Potassium Chloride 20 MEQ TAB PO PRN (20:34)
[2018-03-23] MEDS ORDERED: Potassium Phosphate 9 MMOL in Sodium Chloride 0.9% 100 ML IVPB PRN (20:34)
[2018-03-23] MEDS ORDERED: Dextrose 50% Abboject 50 ML SYRINGE SLOW IVP PRN (20:34)
[2018-03-23] MEDS ORDERED: Magnesium 2 GM/NS 0.9% 100 ML 2 GM in Premix Bag 1 BAG IVPB PRN (20:34)
[2018-03-23] MEDS ORDERED: Potassium Phosphate 15 MMOL in Sodium Chloride 0.9% 250 ML 250 ML IV PRN (20:34)
[2018-03-23] MEDS ORDERED: Potassium Chloride 40 MEQ in Premix Bag 1 BAG IVPB PRN (20:34)
[2018-03-23] MEDS ORDERED: Potassium Phosphate 12 MMOL in Sodium Chloride 0.9% 250 ML 250 ML IV PRN (20:34)
[2018-03-23] MEDS ORDERED: CCU ELECTROLYTE REPLACEMENT PROTOCOL FS PRN (20:34)
[2018-03-23] MEDS ORDERED: Potassium Chloride 40 MEQ in Sodium Chloride 0.9% 250 ML 250 ML IVPB PRN (20:34)
[2018-03-23] MEDS ORDERED: Magnesium Oxide 400 MG TAB PO PRN ×2 (20:34)
[2018-03-23] MEDS ORDERED: Ondansetron PF 4 MG/2 ML Vial IVP PRN (20:37)
[2018-03-23] MEDS ORDERED: Acetaminophen 325 MG TAB PO PRN (20:37)
--- NOTE | 2018-03-23 20:42 | RAD ---
PORTABLE CHEST: 03/23/18 HISTORY: Syncope. Dyspnea. COMPARISON: 12/05/16 study. Heart sizse and mediastinum are within normal limits. The lungs appear clear of any infiltrative proc ess. IMPRESSION: No active intrathoracic disease. POS: LISA
[2018-03-23 20:45] VITALS: BMI 34.1
[2018-03-23] MEDS ORDERED: ADD ELECTROLYTE REPLACEMENT SET TO PROFILE FS SCH (20:45)
[2018-03-23] MEDS ORDERED: HUMULIN R 100 UNITS in Sodium Chloride 0.9% 100 ML IVPB SCH (20:45)
[2018-03-23] MEDS ORDERED: Insulin Regular 300 UNITS/3 ML VIAL IVP SCH (20:45)
[2018-03-23 20:57] LABS: BHCG - Serum Negative (NEGATIVE); Pregs Control Background? CLEAR/WHITE (CLR/WHITE); Pregs Control Bar Appear? YES (CONTROL BAR)
[2018-03-23] MEDS ORDERED: Aspirin/APAP/Caffeine Tab (Excedrin Migraine) PO PRN (21:10)
[2018-03-23] MEDS: cefTRIAXone\\ROCEPHIN 1 GM in Sodium Chloride 0.9% 100 ML IVPB SCH (21:28)
[2018-03-23] MEDS: Dextrose 5% in Water 1,000 ML IV PRN (21:29)
--- NOTE | 2018-03-23 23:22 | HP ---
PRIMARY CARE DOCTOR: Rosaura Pandya MD CODE STATUS: Full code. TIME OF EVALUATION: 7:35 p.m. CHIEF COMPLAINT: Nausea and vomiting. HISTORY OF PRESENT ILLNESS: This is a 22-year-old female patient with past medical history of diabetes since she was 15. The patient came to the hospital after having nausea and vomiting for the past 2 days associated with some shortness of breath. No clear triggers. No alleviating factors. Diabetes was uncontrolled. She was found to be DKA, also she had some associated fever yesterday that was temperature to 102 last night at home and she was found to have a positive urine. We will treat the patient for urinary tract infection. The symptoms were generalized, severe. REVIEW OF SYSTEMS: CONSTITUTIONAL: The patient had fever, chills, generalized weakness. RESPIRATORY: No cough or sputum production. She reports some shortness of breath. CARDIOVASCULAR: No chest pain or palpitations. GASTROINTESTINAL: Nausea, vomiting, no diarrhea or abdominal pain. POLICY WRITER TYPIST: No dizziness, headache or feeling lightheaded. GENITOURINARY: No burning on urination. EXTREMITIES: No leg swelling. All other systems were reviewed and negative except for the findings mentioned above. PAST MEDICAL HISTORY: Hypothyroidism, diabetes, and obesity. SURGICAL HISTORY: , and appendectomy. PSYCH HISTORY: Anxiety. SOCIAL HISTORY: No alcohol, no drugs. No smoking history. Lives at home (with mother and daughter). FAMILY HISTORY: Reviewed, noncontributory for current presentation. KNOWN ALLERGIES: Amoxicillin, Bactrim oral, blueberries, penicillin and sulfa. REPORTED MEDICATIONS: 1. Lantus. 2. Humalog. 3. Levothyroxine. PHYSICAL EXAMINATION: VITAL SIGNS: Blood pressure 138/95 with heart rate 91, respiratory rate was 16, temperature 99, pain was 7/10, oxygen saturation 99 on room air. GENERAL APPEARANCE: The patient is alert, oriented, not in acute distress. HEENT: Eyes normal conjunctivae. Moist oral mucosa. Anicteric. No JVD. RESPIRATORY: Bilateral air entry. No rales. No wheezes. Symmetric expansion. CARDIOVASCULAR: Normal rate, regular rhythm. No murmurs, no gallops. No edema. ABDOMEN: Soft, normal bowel sounds. MUSCULOSKELETAL: Baseline range of motion and strength. No tenderness. SKIN: Warm, intact. No pallor. No rash. No redness. EXTREMITIES: Peripheral pulses are present. Capillary refill seems to be intact. NEURO: No evidence of any new focal weakness. Baseline speech. Cranial nerves seems to be intact. PSYCH: The patient is in good mood. No anxiety. Optimal judgment. IMAGING DATA: Chest x-ray was reviewed. The patient has no active intrathoracic disease. LABORATORY DATA: Labs were reviewed. The patient presented with white count 9.1, hemoglobin 17.3, MCV 88.5, platelet count TNP. Chemistry, sodium 129, potassium 4.6, chloride 98, carbon dioxide 16, anion gap 20, BUN 15, creatinine 1.1, GFR 61, glucose 318, calcium 10.5. Troponin was negative. Serum total protein 9.4, albumin 4.9, globulin 4.5. test was negative. The urine was positive for elevated white count 11 to 20. Beta hydroxybutyrate 4.25. ASSESSMENT AND PLAN: The patient will be placed in the hospital with following medical problems: 1. Diabetic ketoacidosis. The patient will be placed in diabetic ketoacidosis protocol, keep n.p.o. for now, aggressive hydration. We will place in IMCU. 2. Urinary tract infection. This is likely the reason why the patient might have been in diabetic ketoacidosis. She had some fever yesterday. Today, those symptoms are not present. The patient has been started on antibiotic. Cultures will need to be followed. We will reconcile medications and adjust treatment as needed. 3. Deep venous thrombosis prophylaxis. Job ID: [id number]
[2018-03-24] MEDS: Dextrose 5% in Water 1,000 ML IV PRN (03:58)
[2018-03-24 04:58] LABS: #Eosinphils 0.1 thou/uL (0.0-0.7); #Lymphocytes 2.6 thou/uL (1.20-3.40); #Monocytes 0.8 thou/uL (0.11-0.59); #Neutrophils 2.8 thou/uL (1.40-6.50); %Basophils 0.5 % (0.0-1.0); %Eosinophils 2.1 % (0.0-10.0); %Lymphocytes 40.9 % (21.0-51.0); %Monocytes 12.4 % (0.0-10.0); %Neutrophils 44.1 % (42.0-75.0); Hemoglobin 14.8 g/dL (12.0-16.0); Mean Corpuscular HGB CONC 33.9 g/dL (32.0-36.0); Mean Corpuscular Hemoglobin 30.1 pg (27.0-31.0); Mean Corpuscular Volume 88.8 fL (78.0-98.0); Platelet Count 190 thou/uL (130-400); Red Blood Cell (RBC) Count 4.91 mill/uL (4.20-5.40); White Blood Cell (WBC) Count 6.3 thou/uL (4.8-10.8)
[2018-03-24 05:09] LABS: Anion Gap 15 mmol/L (10-20); BUN (Urea Nitrogen) 12 mg/dL (7.0-18.7); Calc. Creatinine Clearance 154 mL/min (70-130); Calcium 9.3 mg/dL (7.8-10.44); Carbon Dioxide 16 mmol/L (22-29); Chloride 104 mmol/L (98-107); Estimated GFR-MDRD Greater than 90; Glucose 131 mg/dL (70-105); Potassium 3.5 mmol/L (3.5-5.1); Sodium 131 mmol/L (136-145)
[2018-03-24] MEDS ORDERED: Ondansetron ODT 4 MG TAB PO PRN (08:17)
[2018-03-24] MEDS ORDERED: Bisacodyl 5 MG TAB PO PRN (08:17)
[2018-03-24] MEDS ORDERED: Diabetic Tussin 200 MG/10 ML UDCUP PO PRN (08:17)
[2018-03-24] MEDS ORDERED: Senokot S 8.6-50 MG TAB PO PRN (08:17)
[2018-03-24] MEDS ORDERED: Cepastat Lozenges 1 LOZ PO PRN (08:17)
[2018-03-24] MEDS ORDERED: Dextrose 5% in Water 1,000 ML IV PRN (08:17)
[2018-03-24] MEDS ORDERED: Sodium Chloride 0.65% Nasal 44 ML BOT EA NARE PRN (08:17)
[2018-03-24] MEDS ORDERED: Loperamide HCl 2 MG CAP PO PRN (08:17)
[2018-03-24] MEDS ORDERED: hydrALAZINE 20 MG/ML VIAL SLOW IVP PRN (08:17)
[2018-03-24] MEDS ORDERED: Zolpidem Tartrate 5 MG TAB PO PRN (08:17)
[2018-03-24] MEDS ORDERED: Artificial Tears 18 DROP/0.9 ML EA EYE PRN (08:17)
[2018-03-24] MEDS ORDERED: Dextrose 50% Abboject 50 ML SYRINGE SLOW IVP PRN (08:17)
[2018-03-24] MEDS ORDERED: Eucerin (Mineral Oil/Petrolatum,White) 30 gm Jar TOP PRN (08:17)
[2018-03-24] MEDS ORDERED: HumaLOG 300 UNITS/3 ML VIAL SC PRN (08:17)
[2018-03-24] MEDS ORDERED: Loratadine 10 MG TAB PO PRN (08:17)
[2018-03-24] MEDS ORDERED: NPH, Human Insulin Isophane 300 UNIT/3 ML VIAL SC SCH (09:00)
[2018-03-24 09:53] LABS: Hemoglobin A1c 12.8 % (4.0-6.0)
[2018-03-24 10:06] LABS: Anion Gap 17 mmol/L (10-20); BUN (Urea Nitrogen) 10 mg/dL (7.0-18.7); Calc. Creatinine Clearance 167 mL/min (70-130); Calcium 9.5 mg/dL (7.8-10.44); Carbon Dioxide 13 mmol/L (22-29); Chloride 106 mmol/L (98-107); Estimated GFR-MDRD Greater than 90; Glucose 130 mg/dL (70-105); Magnesium 1.9 mg/dL (1.6-2.6); Phosphorus 3.4 mg/dL (2.3-4.7); Potassium 3.8 mmol/L (3.5-5.1); Sodium 132 mmol/L (136-145)
[2018-03-24] MEDS ORDERED: Ketorolac Tromethamine 30 MG/ML VIAL IVP PRN (10:10)
[2018-03-24] MEDS ORDERED: Ibuprofen 600 MG TAB PO PRN (10:11)
--- NOTE | 2018-03-24 11:16 | PDOC.PN ---
- Subjective Encounter Start Date: 03/24/18 Encounter Start Time: 09:45 -: old records requested/rev c/o headache, no nausea or vomiting, Patient seen and examined. No overnight events - Objective Resuscitation Status - Order Detail: 03/23/18 20:37 Resuscitation Status Routine Resuscitation Status: FULL: Full Resuscitation MAR Reviewed: Yes Vital Signs & Weight: Vital Signs (12 hours) Temp Pulse Ox 03/24/18 08:00 99 03/24/18 07:21 98.0 F 03/24/18 04:00 99.1 F 03/24/18 00:18 98.0 F Weight Weight 186 lb 8 oz Most Recent Monitor Data Heart Rate from ECG 68 NIBP 99/67 NIBP BP-Mean 77 Respiration from ECG 18 SpO2 98 I&O: 03/23/18 03/24/18 03/25/18 06:59 06:59 06:59 Intake Total 1920 Output Total 1000 Balance 920 Result Diagrams: 03/24/18 04:40 03/24/18 09:30 Additional Labs: Accuchecks 03/24/18 03/24/18 03/24/18 10:39 08:00 06:50 POC Glucose 133 H 138 H 138 H 03/24/18 03/24/18 03/24/18 05:31 04:25 03:25 POC Glucose 148 H 130 H 135 H 03/24/18 03/24/18 03/23/18 01:33 00:28 23:31 POC Glucose 133 H 128 H 127 H 03/23/18 03/23/18 03/23/18 22:33 20:56 20:04 POC Glucose 130 H 167 H 190 H 03/23/18 16:37 POC Glucose 295 H EKG Reviewed by me: Yes (nsr) Phys Exam - Physical Examination Constitutional: NAD HEENT: PERRLA, moist MMs, sclera anicteric Neck: no JVD, supple Respiratory: no wheezing, no rales, no rhonchi Cardiovascular: RRR, no significant murmur, no rub Gastrointestinal: soft, non-tender, no distention, positive bowel sounds Musculoskeletal: no edema, pulses present Neurological: non-focal, normal sensation, moves all 4 limbs Lymphatic: no nodes Psychiatric: normal affect, A&O x 3 Skin: no rash, normal turgor Dx/Plan (1) Dehydration Code(s): E86.0 - DEHYDRATION Status: Acute (2) Ketosis Code(s): E88.89 - OTHER SPECIFIED METABOLIC DISORDERS Status: Acute (3) Nausea & vomiting Code(s): R11.2 - NAUSEA WITH VOMITING, UNSPECIFIED Status: Acute (4) UTI (urinary tract infection) Status: Acute (5) Obesity (BMI 30.0-34.9) Code(s): E66.9 - OBESITY, UNSPECIFIED Status: Chronic (6) Type 1 diabetes mellitus Status: Chronic (7) Migraine Code(s): G43.909 - MIGRAINE, UNSP, NOT INTRACTABLE, WITHOUT STATUS MIGRAINOSUS Status: Acute - Plan cont current plan of care, continue antibiotics * continue rocephin * continue IVF * medication reviewed as below * symptomatic treatment * toradol and motrin as needed * repeat labs tomorrow * home medication started. Review of Systems - Review of Systems ENT: negative: Ear Pain, Ear Discharge, Nose Pain, Nose Discharge, Nose Congestion, Mouth Pain, Mouth Swelling, Throat Pain, Throat Swelling, Other Respiratory: negative: Cough, Dry, Shortness of Breath, Hemoptysis, SOB with Excertion, Pleuritic Pain, Sputum, Wheezing Cardiovascular: negative: chest pain, palpitations, orthopnea, paroxysmal nocturnal dyspnea, edema, light headedness, other Gastrointestinal: negative: Nausea, Vomiting, Abdominal Pain, Diarrhea, Constipation, Melena, Hematochezia, Other Genitourinary: negative: Dysuria, Frequency, Incontinence, Hematuria, Retention , Other Musculoskeletal: negative: Neck Pain, Shoulder Pain, Arm Pain, Back Pain, Hand Pain, Leg Pain, Foot Pain, Other - Medications/Allergies Allergies/Adverse Reactions: Allergies Allergy/AdvReac Type Severity Reaction Status Date / Time blueberry Allergy Unknown Hives Verified 03/23/18 20:40 morphine Allergy Unknown Rash Verified 03/23/18 20:40 amoxicillin Allergy Rash Verified 03/23/18 20:40 Penicillins Allergy Rash Verified 03/23/18 20:40 Sulfa (Sulfonamide Allergy Rash Verified 03/23/18 20:40 Antibiotics) sulfamethoxazole Allergy Rash Verified 03/23/18 20:40 [From Bactrim] trimethoprim [From Bactrim] Allergy Rash Verified 03/23/18 20:40 Medications: Current Medications Acetaminophen (Tylenol) 650 mg PO Q4H PRN PRN Reason: Headache/Fever/Mild Pain (1-3) Artificial Tears (Tears Naturale) 2 drop EA EYE PRN PRN PRN Reason: Dry Eyes Bisacodyl (Dulcolax) 10 mg PO DAILYPRN PRN PRN Reason: Constipation Dextrose/Water (Dextrose 50%) 25 gm SLOW IVP PRN PRN PRN Reason: Hypoglycemia Enoxaparin Sodium (Lovenox) 40 mg SC 0900 ELANA Famotidine (Pepcid) 20 mg PO BID ELANA Glucagon (Glucagon) 1 mg IM PRN PRN PRN Reason: Hypoglycemia Guaifenesin (Robitussin Sf) 200 mg PO Q4H PRN PRN Reason: Cough Hydralazine HCl (Apresoline) 10 mg SLOW IVP Q4H PRN PRN Reason: SBP > 180 and HR < 70 Ceftriaxone Sodium 1 gm/ (Sodium Chloride) 100 mls @ 200 mls/hr IVPB Q24HR ELANA Last Admin: 03/23/18 21:28 Dose: 100 mls Dextrose/Water (D5w) 1,000 mls @ 0 mls/hr IV .Q0M PRN PRN Reason: Hypoglycemia Insulin Glargine 50 units/ (Miscellaneous Medication) 0.5 mls @ 0 mls/hr SC HS ELANA Insulin Glargine 50 units/ (Miscellaneous Medication) 0.5 mls @ 0 mls/hr SC QAM ELAAN Ibuprofen (Motrin) 600 mg PO Q6H PRN PRN Reason: Pain Insulin Human Lispro (Humalog) 0 units SC .MODERATE SLIDING SC PRN PRN Reason: Moderate Correctional Scale Insulin Human Lispro (Humalog) 0 units SC .BEDTIME SLIDING SC PRN PRN Reason: Bedtime Correctional Scale Ketorolac Tromethamine (Toradol) 15 mg IVP Q6H PRN PRN Reason: Pain Stop: 03/29/18 10:11 Loperamide HCl (Imodium) 2 mg PO PRN PRN PRN Reason: Diarrhea/Loose Stools Loratadine (Claritin) 10 mg PO DAILYPRN PRN PRN Reason: Sinus Symptoms Mineral Oil/White Petrolatum (Eucerin Cream) 0 gm TOP BIDPRN PRN PRN Reason: Dry Skin Ondansetron HCl (Zofran Odt) 4 mg PO Q6H PRN PRN Reason: Nausea/Vomiting Senna/Docusate Sodium (Senokot S) 2 tab PO BID PRN PRN Reason: Constipation Sodium Chloride ([place] Nasal [place] 0.65%) 0 ml EA NARE QIDPRN PRN PRN Reason: Nasal Congestion Sodium Chloride (Flush - Normal Saline) 10 ml IVF Q12HR ELANA Sodium Chloride (Flush - Normal Saline) 10 ml IVF PRN PRN PRN Reason: Saline Flush Throat Lozenges (Cepastat Lozenges) 1 balbir PO Q2H PRN PRN Reason: Sore Throat Zolpidem Tartrate (Ambien) 5 mg PO HSPRN PRN PRN Reason: Insomnia
--- NOTE | 2018-03-24 12:12 | CON ---
DATE OF CONSULTATION: 03/24/2018 SERVICE: Pulmonary Medicine. REASON FOR CONSULT: IMCU patient. HISTORY OF PRESENT ILLNESS: The patient is a 22-year-old female with past medical history significant for type 1 diabetes mellitus. She takes her insulin as directed. She had 1-2 day history of increasing nausea, vomiting, abdominal discomfort, which was periumbilical, and a fever of 102. She also had increasing shortness of breath, palpitations, and overwhelming sense of fatigue. She woke up from the sleep in the middle of the night and had increasing shortness of breath and presented to the emergency department. This is a little different than her typical DKA presentations. Typically, she can feel them coming on for a couple of days at a time, but on this occasion, it came on fairly abruptly. Either way, she presented to the emergency department. There were some laboratory findings consistent with mild DKA. Overnight, she was placed on insulin drip and rehydrated. Her anion gap cleared overnight. This morning, she had an appetite and she ate food. She kept it down. There has been no interval change to her condition otherwise. PAST MEDICAL HISTORY: 1. Type 1 diabetes mellitus. 2. Hypothyroidism. PAST SURGICAL HISTORY: 1. section. 2. Appendectomy. SOCIAL HISTORY: Negative for alcohol, tobacco, or illicit drug use. She lives at home with her mother and daughter. She has no exposure to chemicals, dust, asbestos, or tuberculosis. FAMILY HISTORY: Noncontributory. ALLERGIES: AMOXICILLIN, BACTRIM, BLUEBERRIES, AND SULFA. MEDICATIONS: List of her inpatient medications was reviewed. Multiple updates were made at this time. REVIEW OF SYSTEMS: General, head, ears, eyes, nose, throat, cardiovascular, respiratory, GI, , musculoskeletal, neurologic, and skin are negative except as mentioned in the HPI. PHYSICAL EXAMINATION: VITAL SIGNS: Afebrile, pulse 68, blood pressure 99/67, respirations 18, and saturation 98% on room air. GENERAL: The patient is awake and alert, in no apparent distress. LUNGS: Decent air entry. There is no prolonged expiratory phase or wheezing present. HEART: Normal rate, regular. ABDOMEN: Soft, nontender, and nondistended. Bowel sounds are positive. MUSCULOSKELETAL: No cyanosis or clubbing. No pitting in the bilateral lower extremities. NEUROLOGIC: Grossly nonfocal. LABORATORY DATA: WBC 6.3, hemoglobin 14.8, platelets 190,000. Basic metabolic profile is essentially unremarkable except for a sodium that is up trending to 132. Bicarb 13, which is downtrending. Her anion gap is up trending to 17. Magnesium and phosphorous fall within normal limits. Hemoglobin A1c is 12.8. Urine is negative. Troponin is negative x1. Liver function studies are essentially unremarkable otherwise. Urinalysis is positive for glycosuria and ketonuria. There is large amount of bilirubin in the urine. There are some white blood cells. The leukocyte esterase is unremarkable. This was a clean-catch specimen. Beta-hydroxybutyric acid was 4.25, but has resolved to 0.9. ASSESSMENT: 1. Diabetic ketoacidosis, resolved. 2. Systemic inflammatory response syndrome with possible viral prodrome. 3. Type 1 diabetes mellitus. DISCUSSION AND PLAN: The patient is currently on antibiotics for possible urinary tract infection. She has been converted over to subcu insulin. If her gap continues to close and she clears her acidosis, she can be considered for transition to the floor. Pulmonary/Critical Care will continue to follow along for 24 hours. Job ID: [id number]
[2018-03-24] MEDS: Enoxaparin Sodium 40 MG/0.4 ML SYRINGE SC SCH (13:04)
[2018-03-24] MEDS: Sodium Chloride 0.9% 1,000 ML IV SCH ×2 (13:04→22:24)
[2018-03-24] MEDS: HumaLOG 300 UNITS/3 ML VIAL SC PRN ×2 (16:13→22:29)
[2018-03-24] MEDS ORDERED: Insulin Glargine 50 UNITS in Pre-Filled Syringe 1 EACH SC SCH (21:00)
[2018-03-24] MEDS: Famotidine 20 MG TAB PO SCH (22:24)
[2018-03-24] MEDS: cefTRIAXone\\ROCEPHIN 1 GM in Sodium Chloride 0.9% 100 ML IVPB SCH (22:44)
[2018-03-25 05:56] LABS: Anion Gap 12 mmol/L (10-20); BUN (Urea Nitrogen) 14 mg/dL (7.0-18.7); Calc. Creatinine Clearance 180 mL/min (70-130); Calcium 8.9 mg/dL (7.8-10.44); Carbon Dioxide 20 mmol/L (22-29); Chloride 108 mmol/L (98-107); Estimated GFR-MDRD Greater than 90; Glucose 184 mg/dL (70-105); Sodium 136 mmol/L (136-145)
[2018-03-25 07:57] VITALS: BP 111/65; TEMP 98.2
[2018-03-25] MEDS ORDERED: Insulin Glargine 50 UNITS in Pre-Filled Syringe 1 EACH SC SCH (09:00)
[2018-03-25] MEDS: Enoxaparin Sodium 40 MG/0.4 ML SYRINGE SC SCH (09:01)
[2018-03-25] MEDS: Famotidine 20 MG TAB PO SCH (09:02)
--- NOTE | 2018-03-25 11:07 | DIS ---
DATE OF ADMISSION: 03/23/2018 DATE OF DISCHARGE: 03/25/2018 PRIMARY CARE PHYSICIAN: [facility] Call Admission. DISCHARGE DISPOSITION: Home. PRIMARY DISCHARGE DIAGNOSES: 1. Acute migraine headache. 2. Urinary tract infection. 3. Nausea and vomiting, resolved. 4. Dehydration, corrected. 5. Ketosis, resolved. SECONDARY DISCHARGE DIAGNOSES: 1. Diabetes, type 1, on insulin. 2. Obesity. 3. Hypothyroidism. PRIMARY PROCEDURE/OPERATION: None. RADIOLOGICAL INVESTIGATION: Chest x-ray, normal. SIGNIFICANT LABORATORY DATA: WBC 6.3, hemoglobin 14.8, and platelet 190. Sodium 136, potassium 4.0, BUN 14, creatinine 0.65, calcium 8.9. TSH 9.12. Hemoglobin A1c 12.8. Urinalysis suggestive of UTI. Serum ketone 0.90. Urine culture negative. DISCHARGE MEDICATIONS: 1. Cipro 500 mg p.o. b.i.d. for 5 days. 2. Lantus insulin 65 units subcu b.i.d. 3. Humalog insulin as per sliding scale. 4. Synthroid 175 mcg p.o. daily. CONTRAINDICATION: None. CODE STATUS: Full code. INPATIENT DIABETIC EDUCATOR: None. ALLERGIES: BLUEBERRY, MORPHINE, AMOXICILLIN, AND PENICILLIN. DISCHARGE PLAN: Posthospital, the patient will follow up with primary care physician in 1 week. HOSPITAL COURSE: A 22-year-old female who has above-mentioned medical problem, who was admitted by Dr. Beal. Please see his H and P for further details. The patient was having nausea, vomiting, and she was dehydrated. She also had mild ketosis. Based on initial presentation, she was not having any classic DKA, but her blood sugar was not well controlled. She was admitted to [facility]. She was treated with diabetes ketoacidosis protocol treatment. She was given IV fluid and hydrated. She was symptomatically treated for nausea and vomiting and her urinalysis was suggestive of UTI and that is why we started Rocephin. On discharge, we changed to Cipro for 5 more days. While in hospital, she was also having acute migraine headache and that was contributing to her nausea, vomiting, and dehydration, which was treated with NSAIDs with significant improvement. PHYSICAL EXAMINATION: GENERAL: The patient is seen and examined at bedside today. She is ambulatory, tolerating p.o. well, completely asymptomatic. The patient is currently alert, awake, in no obvious acute distress. VITAL SIGNS: Her vitals are stable and her examination is normal. Today, temperature 98.2, pulse 73, respiratory rate 20, saturation 98%, blood pressure 111/65, and weight 186 pounds. HEENT: Head; normocephalic and atraumatic. Eyes; pupils are round and reactive to light. Extraocular muscle intact. LUNGS: Clear without any rhonchi. CARDIAC: S1 and S2 regular without any murmur. ABDOMEN: Soft and benign. EXTREMITIES: No edema. NEUROLOGIC: Nonfocal examination. CONDITION: The patient is medically stable for discharge today. Job ID: [id number]
[2018-03-26] MEDS ORDERED: Levothyroxine 175 MCG TAB PO SCH (06:00)
== END 2018-03-25 11:19 | disposition home or self-care (01) | DRG 638 ==
LOC: ERS 16:11 → IMCU/EMU 18:55 → 3SE 03-24 15:48
PROVIDERS: ADMIT Family Medicine; ATTEND Family Medicine
DX: E10.10 Type 1 diabetes mellitus with ketoacidosis without coma (principal); N39.0 Urinary tract infection, site not specified; R65.10 Systemic inflammatory response syndrome (SIRS) of non-infectious origin without acute organ dysfunction; E03.9 Hypothyroidism, unspecified; F41.9 Anxiety disorder, unspecified; G43.909 Migraine, unspecified, not intractable, without status migrainosus; E86.0 Dehydration; E66.9 Obesity, unspecified; Z68.34 Body mass index [BMI] 34.0-34.9, adult; Z88.0 Allergy status to penicillin; Z88.2 Allergy status to sulfonamides; Z91.018 Allergy to other foods; Z79.4 Long term (current) use of insulin
CPT/HCPCS: 36415; 36416; 71045; 80048; 80053; 81003; 81015; 82010; 83036; 83735; 84100; 84443; 84484; 84703; 85025; 87077; 87086; 96360; J0696; J1650; J1815; J1825; J1885; J7050

== ENCOUNTER 2019-01-24 11:56 | Emergency (ER) | payer SELFPAY | END 2019-01-24 13:09 | disposition home or self-care (01) | LOC: ERS 11:56 | DX: L03.115 Cellulitis of right lower limb (principal); E03.9 Hypothyroidism, unspecified; E10.9 Type 1 diabetes mellitus without complications; E66.9 Obesity, unspecified; F41.9 Anxiety disorder, unspecified | CPT/HCPCS: 87070; 87077; 87186; 87205; 99283 ==

== ENCOUNTER 2019-02-06 18:38 | Inpatient (IN) | payer SELFPAY ==
[2019-02-06 19:08] LABS: #Basophils 0.1 thou/uL (0.0-0.2); #Eosinphils 0.1 thou/uL (0.0-0.7); #Lymphocytes 2.1 thou/uL (1.20-3.40); #Monocytes 0.5 thou/uL (0.11-0.59); %Basophils 0.8 % (0.0-1.0); %Eosinophils 0.9 % (0.0-10.0); %Lymphocytes 30.9 % (21.0-51.0); %Monocytes 7.3 % (0.0-10.0); %Neutrophils 60.1 % (42.0-75.0); Hemoglobin 15.4 g/dL (12.0-16.0); Mean Corpuscular HGB CONC 34.6 g/dL (32.0-36.0); Mean Corpuscular Hemoglobin 29.7 pg (27.0-31.0); Mean Corpuscular Volume 85.7 fL (78.0-98.0); Mean Platelet Volume 9.3 fL (7.4-10.4); Platelet Count 178 thou/uL (130-400); RBC Distribution Width 11.8 % (11.5-14.5); Red Blood Cell (RBC) Count 5.18 mill/uL (4.20-5.40); White Blood Cell (WBC) Count 6.7 thou/uL (4.8-10.8)
[2019-02-06 19:15] LABS: Base Excess-Venous -9.4 mmol/L (-2.0 to 3.0); Bicarbonate (HCO3v) 18.3 mmol/L (22.0-28.0); CO2 Tension (PvCO2) 45.3 mmHg (40.0-50.0); Calcium, Ionized 1.23 mmol/L (See Comments:); Chloride 98 mmol/L (98-107); Hemoglobin - Calc 16.5 g/dL (12.0-16.0); Potassium 4.6 mmol/L (3.5-5.1); Sodium 129 mmol/L (138-145); T. Carbon Dioxide 19.7 mmol/L (22.0-28.0); vO2 Saturation-calc 85.8 % (60.0-85.0)
[2019-02-06 19:32] LABS: ALT (SGPT) 10 U/L (8-55); AST (SGOT) 10 U/L (5-34); Albumin 4.5 g/dL (3.5-5.0); Alkaline Phosphatase 107 U/L (40-110); Anion Gap 22 mmol/L (10-20); BUN (Urea Nitrogen) 14 mg/dL (7.0-18.7); Bilirubin, Total 0.6 mg/dL (0.2-1.2); Calc. Creatinine Clearance 0 mL/min (70-130); Calcium 9.7 mg/dL (7.8-10.44); Carbon Dioxide 17 mmol/L (22-29); Chloride 96 mmol/L (98-107); Estimated GFR-MDRD 62; Globulin 3.2 g/dL (2.4-3.5); Glucose 453 mg/dL (70-105); Protein, Total 7.7 g/dL (6.0-8.3); Sodium 130 mmol/L (136-145)
[2019-02-06 20:15] LABS: Bilirubin Negative (Negative); Blood, Urine Negative (Negative); Clarity Clear (Clear); Glucose, Urine (Dipstick) Greater than 1000 mg/dL (Negative); Leukocyte Negative Leu/uL (Negative); Nitrite Negative (Negative); Protein, Urine (Dipstick) Negative (Neg-Trace); Urobilinogen Normal mg/dL (Less than 2)
[2019-02-06 20:17] LABS: Pregnancy Test - Urine (BHCG) Negative (Negative); Pregu Control Background? CLEAR/WHITE (CLR/WHITE); Pregu Control Bar Appear? YES (CONTROL BAR); Specific Gravity 1.032 (1.002-1.036)
[2019-02-06] MEDS ORDERED: Insulin Regular 100 units/100 ml in NS IVPB SCH (21:15)
[2019-02-06] MEDS ORDERED: Sodium Chloride 0.9% 1,000 ML IV PRN ×4 (21:16)
[2019-02-06] MEDS ORDERED: Dextrose 5 %-0.45 % NaCl 1,000 ML IV PRN (21:16)
[2019-02-06] MEDS ORDERED: NS 0.9% w/ 20 MEQ KCL 1,000 ML IV PRN ×2 (21:16)
[2019-02-06] MEDS ORDERED: CCU Electrolyte Replacement 1 EACH IVPB ONE (21:16)
[2019-02-06] MEDS ORDERED: HUMULIN R 100 UNITS in Sodium Chloride 0.9% 100 ML IVPB SCH (21:30)
--- NOTE | 2019-02-06 21:37 | RAD ---
PORTABLE CHEST: 02/06/19 HISTORY: Diabetes. Cough. Rule out pneumonia. The lungs appear clear. Vascular markings normal. Heart and mediastinum appear normal. IMPRESSION: No evidence of infiltrate. POS: [facility]
[2019-02-06] MEDS ORDERED: Magnesium 2 GM/50 ML 2 GM in Premix Bag 1 BAG IVPB PRN (21:38)
[2019-02-06] MEDS ORDERED: Potassium Phosphate 12 MMOL in Sodium Chloride 0.9% 250 ML 250 ML IV PRN (21:38)
[2019-02-06] MEDS ORDERED: Potassium Phosphate 9 MMOL in Sodium Chloride 0.9% 100 ML IVPB PRN (21:38)
[2019-02-06] MEDS ORDERED: Potassium Chloride 40 MEQ in Sodium Chloride 0.9% 250 ML 250 ML IVPB PRN (21:38)
[2019-02-06] MEDS ORDERED: CCU ELECTROLYTE REPLACEMENT PROTOCOL FS PRN (21:38)
[2019-02-06] MEDS ORDERED: Potassium Chloride 40 MEQ in Premix Bag 1 BAG IVPB PRN (21:38)
[2019-02-06] MEDS ORDERED: Potassium Chloride 20 MEQ TAB PO PRN (21:38)
[2019-02-06] MEDS ORDERED: Magnesium Oxide 400 MG TAB PO PRN ×2 (21:38)
[2019-02-06] MEDS ORDERED: Potassium Phosphate 15 MMOL in Sodium Chloride 0.9% 250 ML 250 ML IV PRN (21:38)
[2019-02-06] MEDS ORDERED: PHOS-NAK 1 PKT PACK PO PRN ×2 (21:38)
[2019-02-06 22:09] LABS: Anion Gap 18 mmol/L (10-20); BUN (Urea Nitrogen) 13 mg/dL (7.0-18.7); Calc. Creatinine Clearance 0 mL/min (70-130); Calcium 8.8 mg/dL (7.8-10.44); Carbon Dioxide 14 mmol/L (22-29); Chloride 101 mmol/L (98-107); Estimated GFR-MDRD 78; Glucose 353 mg/dL (70-105); Magnesium 1.5 mg/dL (1.6-2.6); Phosphorus 3.4 mg/dL (2.3-4.7); Potassium 4.6 mmol/L (3.5-5.1); Sodium 128 mmol/L (136-145)
[2019-02-06 23:21] VITALS: BMI 36.4
[2019-02-07] MEDS: Clindamycin 150 MG CAP PO SCH ×5 (00:52→23:49)
[2019-02-07] MEDS: Sodium Chloride 0.9% 1,000 ML IV SCH ×5 (00:54→21:05)
[2019-02-07] MEDS: D5 1/2 NS w/20 mEq KCL 1,000 ML IV PRN ×2 (01:28→05:40)
[2019-02-07 01:48] LABS: Anion Gap 13 mmol/L (10-20); BUN (Urea Nitrogen) 12 mg/dL (7.0-18.7); Calc. Creatinine Clearance 182 mL/min (70-130); Calcium 8.2 mg/dL (7.8-10.44); Carbon Dioxide 13 mmol/L (22-29); Chloride 113 mmol/L (98-107); Estimated GFR-MDRD Greater than 90; Glucose 234 mg/dL (70-105); Sodium 135 mmol/L (136-145)
[2019-02-07 04:56] LABS: Anion Gap 10 mmol/L (10-20); BUN (Urea Nitrogen) 12 mg/dL (7.0-18.7); Calc. Creatinine Clearance 193 mL/min (70-130); Calcium 8.4 mg/dL (7.8-10.44); Carbon Dioxide 17 mmol/L (22-29); Chloride 111 mmol/L (98-107); Estimated GFR-MDRD Greater than 90; Glucose 197 mg/dL (70-105); Potassium 3.7 mmol/L (3.5-5.1); Sodium 134 mmol/L (136-145)
[2019-02-07] MEDS: Levothyroxine 175 MCG TAB PO SCH (06:08)
[2019-02-07] MEDS: Enoxaparin Sodium 40 MG/0.4 ML SYRINGE SC SCH (07:44)
[2019-02-07] MEDS: Famotidine/PF 20 mg/2ml Vial SLOW IVP SCH ×2 (07:45→19:47)
--- NOTE | 2019-02-07 08:16 | HP ---
PRESENTING COMPLAINT: Weakness. HISTORY OF PRESENT ILLNESS: Uriel Lewis is a 23-year-old female with a history of type 1 diabetes mellitus, history of recurrent DKA on average 1-2 times a year. Last episode was 9 months ago, on regular Lantus insulin b.i.d., presented because of weakness, abdominal cramps, and nausea with vomiting. In the ED, she was noted with elevated glucose as well as anion gap. She has been diagnosed with diabetic ketoacidosis and is being admitted for further management. The patient states she is more adherent with the Lantus now. She was previously on insulin treatment, forced to give it up due to lack of insurance. She is currently being followed by who is managing her diabetes now. She is hoping to restart insulin after a new insurance next year. She admits to recent feeling of dizziness one week ago after being noted to have worsening redness around that area of diabetic lipoidica on the lower extremity. She was started on Bactrim, which she has been taking since then. She feels the area of redness is improving. She denies any cough, shortness of breath or dizziness at this time. PAST MEDICAL HISTORY: 1. Type 1 diabetes mellitus. 2. Recurrent DKA. 3. Bilateral lower extremity diabetic lipoidica rash. HOME MEDICATIONS: See medication list to be verified. FAMILY HISTORY: Significant for hypertension. SOCIAL HISTORY: The patient denies any tobacco, alcohol, or illicit drug use. REVIEW OF SYSTEMS: All systems reviewed x10 were negative. ALLERGIES: BLUEBERRY, MORPHINE, AMOXICILLIN, PENICILLIN. PHYSICAL EXAMINATION: CURRENT VITAL SIGNS: Blood pressure of 132/59, pulse of 113, respiratory rate of 19, O2 saturation 96 on room air. Temperature afebrile. GENERAL: A young female, slightly overweight, not in any distress. Pupils equal, round, reactive to light. Moist oral mucosa NECK: No JVD. No carotid bruit. RESPIRATORY: Good air entry. No crepitation. CARDIOVASCULAR: S1, S2. Rate and rhythm tachycardic. ABDOMEN: Full, soft, nontender. Bowel sounds positive. EXTREMITIES: No pedal edema. No calf tenderness. More discrete coin-like lesion of hyperpigmented erythema on the left lower extremity gregory. Large area of two separate discrete slightly tender and erythematous area on the right lower extremity. NEUROLOGIC: The patient is alert and oriented. Cranial nerves 2 through 12 grossly intact. LABORATORY DATA: WBC 6.7, hemoglobin 15, pH 7.2, potassium 5.0, bicarb 17. Sodium 130, glucose 453. Urinalysis shows greater than 150 ketones. Beta hydroxybutyrate 6.08. IMPRESSION: 1. Recurrent diabetic ketoacidosis. 2. Lower extremity cellulitis on baseline diabetic lipoidica rash. PLAN: We will admit the patient to intensive care unit. We will do gentle IV hydration per DKA protocol, insulin drip by protocol with weaning as tolerated. Continue q.1 hour fingerstick monitoring. We will start empirical antibiotics with Levaquin and clindamycin for lower extremity cellulitis rash. Continue BMP monitoring for anion gap closure. When DKA resolve we will resume Lantus insulin. Need for compliance as well as short-acting NovoLog use at home discussed. The patient will need body builder apprentice at discharge to consider restarting her insulin pump, subcutaneous heparin for DVT prophylaxis. ADVANCED DIRECTIVE: The patient is full code. Job ID: [id number]
[2019-02-07 09:02] LABS: Anion Gap 9 mmol/L (10-20); BUN (Urea Nitrogen) 10 mg/dL (7.0-18.7); Calc. Creatinine Clearance 193 mL/min (70-130); Calcium 8.5 mg/dL (7.8-10.44); Carbon Dioxide 19 mmol/L (22-29); Chloride 109 mmol/L (98-107); Estimated GFR-MDRD Greater than 90; Glucose 141 mg/dL (70-105); Potassium 4.1 mmol/L (3.5-5.1); Sodium 133 mmol/L (136-145)
[2019-02-07] MEDS ORDERED: Insulin Glargine 30 UNITS in Pre-Filled Syringe 1 EACH SC SCH (11:30)
[2019-02-07] MEDS: Acetaminophen 325 MG TAB PO PRN ×2 (12:17→19:48)
--- NOTE | 2019-02-07 14:52 | PDOC.HOSPP ---
- Subjective Subjective: Doing much better. Minimal abdominal discomfort. She has been on high dose long acting insulin at home. She has been reducing the nightly dose on her own when she had the insulin because of nocturnal hypoglycemia. She has been on insulin since she was 14. She went on pills once and had DKA for the first time. She does indicate that she once weighed 400 pounds. - Objective Vital Signs & Weight: Vital Signs (12 hours) Temp Pulse Ox 02/07/19 10:26 97.2 F L 02/07/19 08:00 97 02/07/19 07:13 97.5 F L 02/07/19 04:00 97.7 F Weight Weight 199 lb 4.8 oz Most Recent Monitor Data Heart Rate from ECG 72 NIBP 113/86 NIBP BP-Mean 95 Respiration from ECG 17 SpO2 100 I&O: 02/06/19 02/07/19 02/08/19 06:59 06:59 06:59 Intake Total 2750 1499 Output Total 550 250 Balance 2200 1249 Result Diagrams: 02/06/19 18:53 02/07/19 08:16 Additional Labs: Accuchecks 02/07/19 02/07/19 02/07/19 12:17 11:12 10:14 POC Glucose 162 H 170 H 134 H 02/07/19 02/07/19 02/07/19 09:13 08:08 07:10 POC Glucose 143 H 169 H 143 H 02/07/19 02/07/19 02/07/19 06:15 05:18 04:12 POC Glucose 125 H 154 H 187 H 02/07/19 02/07/19 02/07/19 03:08 02:05 01:21 POC Glucose 231 H 224 H 236 H 02/07/19 02/06/19 02/06/19 00:13 23:00 21:53 POC Glucose 261 H 282 H 324 H 02/06/19 02/06/19 20:40 18:51 POC Glucose 347 H 410 H Hospitalist ROS - Medication Medications: Active Medications Generic Name Dose Route Start Last Admin Trade Name Freq PRN Reason Stop Dose Admin Acetaminophen 650 mg 02/07/19 11:24 02/07/19 12:17 Tylenol PO 650 mg Q6H PRN Administration Fever/Mild Pain Clindamycin HCl 300 mg 02/06/19 23:59 02/07/19 12:17 Cleocin PO 300 mg Q6HR ELANA Administration Enoxaparin Sodium 40 mg 02/07/19 09:00 02/07/19 07:44 Lovenox SC Not Given 0900 [facility] Famotidine 20 mg 02/07/19 09:00 02/07/19 07:45 Pepcid SLOW IVP 20 mg Q12HR ELANA Administration Sodium Chloride 1,000 mls @ 150 mls/hr 02/06/19 21:30 02/07/19 13:58 Normal Saline 0.9% IV 1,000 mls .Q6H40M ELANA Administration Potassium Chloride/Dextrose/Sod Cl 1,000 mls @ 250 mls/hr 02/06/19 21:16 05:40 D5 1/2 Ns W/20 Meq Kcl IV 1,000 mls .Q4H PRN Administration Step 4 of DKA Protocol Protocol Sodium Chloride 1,000 mls @ 500 mls/hr 02/06/19 21:16 02/06/19 23:20 Normal Saline 0.9% IV 1,000 mls .Q2H PRN Administration Step 1 of DKA Protocol Protocol Levothyroxine Sodium 175 mcg 02/07/19 06:00 02/07/19 06:08 Synthroid PO 175 mcg 0600 ELANA Administration - Exam General Appearance: NAD, awake alert Heart: RRR, no murmur, no gallops, no rubs, normal peripheral pulses Respiratory: CTAB, no wheezes, no rales, no ronchi, normal chest expansion, no tachypnea, normal percussion Gastrointestinal: soft, non-tender, non-distended, normal bowel sounds, no palpable masses, no hepatomegaly, no splenomegaly, no bruit Extremities: no cyanosis, no clubbing, no edema Skin - other findings: Lipioidica diabeticorum right anterior calf. Small pustule. 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 Will initiate po's. If tolerates, will start long acting insulin and SSI. Then DC the insulin gtt. Unroofed the small pustule in the area of necrobiosis. Culture obtained. Already on abx. Does not appear cellulitic. Continue home thyroid medications.
[2019-02-07] MEDS ORDERED: Dextrose 50% Abboject 50 ML SYRINGE SLOW IVP PRN (20:52)
[2019-02-07] MEDS ORDERED: HumaLOG 300 UNITS/3 ML VIAL SC PRN ×2 (20:52)
[2019-02-07] MEDS ORDERED: Dextrose 5% in Water 1,000 ML IV PRN (20:52)
[2019-02-08 04:04] LABS: Anion Gap 7 mmol/L (10-20); BUN (Urea Nitrogen) 7 mg/dL (7.0-18.7); Calc. Creatinine Clearance 206 mL/min (70-130); Calcium 8.1 mg/dL (7.8-10.44); Carbon Dioxide 21 mmol/L (22-29); Chloride 113 mmol/L (98-107); Estimated GFR-MDRD Greater than 90; Glucose 232 mg/dL (70-105); Potassium 3.6 mmol/L (3.5-5.1); Sodium 137 mmol/L (136-145)
[2019-02-08] MEDS: Clindamycin 150 MG CAP PO SCH ×2 (06:51→11:13)
[2019-02-08] MEDS: Levothyroxine 175 MCG TAB PO SCH (06:51)
[2019-02-08] MEDS: Enoxaparin Sodium 40 MG/0.4 ML SYRINGE SC SCH (07:39)
[2019-02-08] MEDS: Famotidine/PF 20 mg/2ml Vial SLOW IVP SCH (08:09)
[2019-02-08] MEDS: Sodium Chloride 0.9% 1,000 ML IV SCH ×2 (08:09→15:11)
[2019-02-08] MEDS ORDERED: Insulin Glargine 30 UNITS in Pre-Filled Syringe 1 EACH SC SCH (10:00)
[2019-02-08] MEDS ORDERED: Insulin Glargine 35 UNITS in Pre-Filled Syringe SC SCH (13:30)
[2019-02-08 15:06] VITALS: TEMP 97.2
--- NOTE | 2019-02-08 21:58 | DIS ---
DATE OF ADMISSION: 02/06/2019 DATE OF DISCHARGE: 02/08/2019 DISCHARGE DIAGNOSES: Diabetic ketoacidosis, diabetes mellitus type 1.5, obesity , hypothyroidism, cellulitis, necrobiosis lipoidica diabeticorum. CONSULTATIONS: None. PROCEDURES: None. BRIEF HISTORY OF PRESENT ILLNESS: This is a 23-year-old female with a past medical history of diabetes type 1.5, hypothyroidism, who had presented to the emergency room due to abdominal cramps, nausea, and vomiting. The patient reported that she was feeling weak the entire week. The patient states that typically when she had been in DKA in the past, she had UTI. However, she had no dysuria, frequency, or urgency at this time. In emergency room, the patient had a glucose of 453, potassium of 5, bicarb of 17, and beta hydroxybutyrate of 6.08. The patient was admitted for DKA. HOSPITAL COURSE: DKA: The patient was treated with an insulin drip. She was transitioned off the insulin drip on 02/07. She was started on Lantus 30 mg subcu 02/07. Her fingersticks remained controlled in the high 100s to 200s on the night of the . The patient however states that she takes 65 units of Lantus twice daily at home. The patient was given 30 units of Lantus on the day of discharge and two hours later, her blood sugar continued to increase to 288 but eventually came down after getting sliding scale. She denied any complaints of abdominal pain, nausea, or vomiting, so she was thought to be stable for discharge home. She was discharged with Lantus 35 units subcu b.i.d., but she was advised that if this dose did not control her blood sugar adequately, that she can go back to her home dose of 65 units subcu b.i.d. She was advised to check her blood sugars before each meal and at bedtime. The patient states she will be seeing an elderly sitter soon. She should follow up with her PCP in a week. Mild cellulitis/pustule in the right lower extremity: The patient has a history of necrobiosis lipoidica and the patient had some small purulent discharge coming out of a wound in her right leg. She also reported some tenderness. However, there was no surrounding erythema. This pustule was unroofed and preliminary bacterial cultures growing positive for Streptococcus agalactiae. The patient was empirically started on clindamycin in the hospital and will be discharged with this for an additional three days due to penicillin allergy. Hypothyroidism: The patient will continue her levothyroxine 200 mcg p.o. daily. DISCHARGE PHYSICAL EXAMINATION: VITAL SIGNS: Temperature 97.2, blood pressure was 100/62, heart rate was 64, O2 saturation was 98% on room air. GENERAL: The patient is morbidly obese. CVS: Regular rate and rhythm with no murmurs, rubs, or gallops. LUNGS: Clear to auscultation bilaterally. ABDOMEN: Positive bowel sounds, soft, nontender, nondistended. EXTREMITIES: The patient has trace edema bilaterally. SKIN: The patient has evidence of necrobiosis lipoidica diabeticorum on her lower extremities. On right lower extremity, there is a small skin pustule which is dried up with no evident drainage noted. There is no surrounding erythema. PERTINENT LABORATORY DATA: CBC on 02/06: was unremarkable. BMP on 02/08, : bicarbonate of 21, anion gap of 7, glucose of 232. LFTs on 02/06: normal. UA on 02/06: showed greater than 1000 glucose, greater than 150 ketones. Urine test : negative. Beta hydroxybutyrate on 02/06: 6.08. PERTINENT IMAGING: Chest x-ray on 02/06: normal. DISCHARGE DISPOSITION: Home. DIET: Diabetic diet. DISCHARGE CONDITION: Stable. DISCHARGE MEDICATIONS: 1. Clindamycin 300 mg p.o. q.6 hours for 3 days. 2. Insulin glargine 35 units subcutaneous b.i.d. Patient can increase to 65 units b.i.d. if blood sugars are elevated. 3. Levothyroxine 200 mcg p.o. daily. 4. Humalog sliding scale 5 units subcu t.i.d. 5. Fluoxetine 20 mg p.o. daily. DISCHARGE INSTRUCTIONS: The patient should follow up with her PCP in a week and follow up with her elderly sitter. She should take her clindamycin for an additional 3 days. Job ID: [id number] [facility]
== END 2019-02-08 16:28 | disposition home or self-care (01) | DRG 638 ==
LOC: ERS 18:38 → IMCU/EMU 20:50
PROVIDERS: ADMIT Internal Medicine; ATTEND Internal Medicine
DX: E13.10 Other specified diabetes mellitus with ketoacidosis without coma (principal); L03.115 Cellulitis of right lower limb; E13.620 Other specified diabetes mellitus with diabetic dermatitis; E03.9 Hypothyroidism, unspecified; B95.4 Other streptococcus as the cause of diseases classified elsewhere; E66.9 Obesity, unspecified; Z96.41 Presence of insulin pump (external) (internal); Z68.36 Body mass index [BMI] 36.0-36.9, adult; Z79.899 Other long term (current) drug therapy; Z79.4 Long term (current) use of insulin; Z88.1 Allergy status to other antibiotic agents; Z88.5 Allergy status to narcotic agent; Z88.0 Allergy status to penicillin; Z79.890 Hormone replacement therapy
CPT/HCPCS: 36415; 36416; 71045; 80048; 80053; 81003; 81025; 82010; 82330; 82803; 83735; 83930; 84100; 85025; 87070; 87077; 87186; 87205; 96361; 96365; J1815; J3490; S0028

== ENCOUNTER 2020-04-07 06:37 | Inpatient (IN) | payer BC ==
[2020-04-07 09:09] LABS: #Lymphocytes 1.8 thou/uL (1.20-3.40); #Monocytes 1.3 thou/uL (0.11-0.59); #Neutrophils 13.2 thou/uL (1.40-6.50); %Basophils 0.2 % (0.0-1.0); %Eosinophils 0.2 % (0.0-10.0); %Lymphocytes 11.1 % (21.0-51.0); %Neutrophils 80.5 % (42.0-75.0); Hemoglobin 13.4 g/dL (12.0-16.0); Mean Corpuscular HGB CONC 33.8 g/dL (32.0-36.0); Mean Corpuscular Volume 88.7 fL (78.0-98.0); Mean Platelet Volume 8.8 fL (7.4-10.4); Platelet Count 199 thou/uL (130-400); RBC Distribution Width 11.7 % (11.5-14.5); Red Blood Cell (RBC) Count 4.47 mill/uL (4.20-5.40); White Blood Cell (WBC) Count 16.4 thou/uL (4.8-10.8)
[2020-04-07 09:43] LABS: ALT (SGPT) 30 U/L (8-55); AST (SGOT) 22 U/L (5-34); Albumin 3.7 g/dL (3.5-5.0); Alkaline Phosphatase 153 U/L (40-110); Anion Gap 26 mmol/L (10-20); BUN (Urea Nitrogen) 24 mg/dL (7.0-18.7); Bilirubin, Total 0.6 mg/dL (0.2-1.2); Calc. Creatinine Clearance 0 mL/min (70-130); Calcium 9.4 mg/dL (7.8-10.44); Carbon Dioxide 12 mmol/L (22-29); Chloride 99 mmol/L (98-107); Globulin 3.3 g/dL (2.4-3.5); Potassium 4.8 mmol/L (3.5-5.1); Sodium 132 mmol/L (136-145)
[2020-04-07 09:57] LABS: Glucose 571 mg/dL (70-105)
[2020-04-07 10:01] LABS: BHCG - Serum Negative (NEGATIVE); Pregs Control Background? CLEAR/WHITE (CLR/WHITE); Pregs Control Bar Appear? YES (CONTROL BAR)
[2020-04-07] MEDS ORDERED: Ondansetron PF 4 MG/2 ML Vial ONE ×2 (11:36→18:52)
[2020-04-07] MEDS ORDERED: NS 0.9% w/ 20 MEQ KCL 1,000 ML IV PRN ×2 (11:38)
[2020-04-07] MEDS ORDERED: Sodium Chloride 0.9% 1,000 ML IV PRN ×4 (11:38)
[2020-04-07] MEDS ORDERED: D5 1/2 NS w/20 mEq KCL 1,000 ML IV PRN (11:38)
[2020-04-07] MEDS ORDERED: Acetaminophen 650 MG Suppository PR PRN (11:38)
[2020-04-07] MEDS ORDERED: Electrolyte Replacement Protocol 1 EACH IVPB ONE (11:38)
[2020-04-07] MEDS ORDERED: HUMULIN R 100 UNITS in Sodium Chloride 0.9% 100 ML IVPB SCH (11:45)
[2020-04-07] MEDS ORDERED: Sodium Chloride 0.9% 100 ML ONE (11:45)
[2020-04-07] MEDS ORDERED: Metoclopramide HCl 10 MG/2 ML VIAL ONE (11:45)
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
[2020-04-07] MEDS ORDERED: INSULIN REGULAR IN 0.9 % NACL 100 UNIT/100 ML BAG ONE (12:09)
[2020-04-07] MEDS ORDERED: Electrolyte Replacement Protocol FS PRN (12:15)
[2020-04-07 12:23] LABS: Anion Gap 24 mmol/L (10-20); BUN (Urea Nitrogen) 23 mg/dL (7.0-18.7); Calc. Creatinine Clearance 0 mL/min (70-130); Calcium 9.4 mg/dL (7.8-10.44); Carbon Dioxide 14 mmol/L (22-29); Chloride 103 mmol/L (98-107); Glucose 375 mg/dL (70-105); Magnesium 2.2 mg/dL (1.6-2.6); Potassium 4.7 mmol/L (3.5-5.1); Sodium 136 mmol/L (136-145)
[2020-04-07 12:34] LABS: Bilirubin Negative (Negative); Blood, Urine Negative (Negative); Clarity Clear (Clear); Glucose, Urine (Dipstick) Greater than 1000 mg/dL (Negative); Ketone, Urine Greater than 150 mg/dL (Negative); Leukocyte Negative Leu/uL (Negative); Nitrite Negative (Negative); Protein, Urine (Dipstick) Negative (Neg-Trace); Specific Gravity, Urine 1.023 (1.002-1.036); Urobilinogen Normal mg/dL (Less than 2); pH, Urine 5.5 (5.0-9.0)
[2020-04-07 13:55] LABS: SARS-CoV-2 NAA Rapid Test Not Detected (NotDetected)
[2020-04-07 16:42] LABS: Anion Gap 16 mmol/L (10-20); BUN (Urea Nitrogen) 21 mg/dL (7.0-18.7); Calc. Creatinine Clearance 0 mL/min (70-130); Calcium 8.7 mg/dL (7.8-10.44); Carbon Dioxide 18 mmol/L (22-29); Chloride 110 mmol/L (98-107); Glucose 151 mg/dL (70-105); Potassium 4.6 mmol/L (3.5-5.1); Sodium 139 mmol/L (136-145)
[2020-04-07] MEDS ORDERED: Metoclopramide HCl 10 MG/2 ML VIAL IVP PRN (17:00)
[2020-04-07] MEDS ORDERED: D5 1/2 NS w/20 mEq KCL 1,000 ML ONE (18:57)
[2020-04-07] MEDS: Dextrose 5 %-0.45 % NaCl 1,000 ML IV PRN ×2 (18:59→21:03)
[2020-04-07] MEDS ORDERED: Scopolamine 1.5 mg/72 hour Patch TOP SCH (19:45)
[2020-04-07 20:20] LABS: Anion Gap 22 mmol/L (10-20); BUN (Urea Nitrogen) 19 mg/dL (7.0-18.7); Calc. Creatinine Clearance 0 mL/min (70-130); Calcium 8.8 mg/dL (7.8-10.44); Carbon Dioxide 14 mmol/L (22-29); Chloride 107 mmol/L (98-107); Glucose 286 mg/dL (70-105); Potassium 5.4 mmol/L (3.5-5.1); Sodium 138 mmol/L (136-145)
[2020-04-07] MEDS ORDERED: Dextrose 50% Abboject 50 ML SYRINGE SLOW IVP PRN (22:44)
[2020-04-07] MEDS ORDERED: HumaLOG 300 UNITS/3 ML VIAL SC PRN (22:44)
[2020-04-07] MEDS ORDERED: Dextrose 5% in Water 1,000 ML IV PRN (22:44)
[2020-04-08] MEDS: Acetaminophen 325 MG TAB PO PRN ×3 (05:40→14:38)
[2020-04-08] MEDS ORDERED: Acetaminophen 325 MG TAB ONE ×3 (06:17→14:37)
[2020-04-08 06:37] LABS: #Basophils 0.1 thou/uL (0.0-0.2); #Eosinphils 0.1 thou/uL (0.0-0.7); #Monocytes 0.6 thou/uL (0.11-0.59); #Neutrophils 7.1 thou/uL (1.40-6.50); %Basophils 0.7 % (0.0-1.0); %Eosinophils 0.7 % (0.0-10.0); %Lymphocytes 20.3 % (21.0-51.0); %Monocytes 6.3 % (0.0-10.0); %Neutrophils 71.9 % (42.0-75.0); Hemoglobin 11.8 g/dL (12.0-16.0); Mean Corpuscular HGB CONC 33.4 g/dL (32.0-36.0); Mean Corpuscular Hemoglobin 29.7 pg (27.0-31.0); Mean Corpuscular Volume 88.7 fL (78.0-98.0); Mean Platelet Volume 8.2 fL (7.4-10.4); Platelet Count 185 thou/uL (130-400); Red Blood Cell (RBC) Count 3.96 mill/uL (4.20-5.40); White Blood Cell (WBC) Count 9.9 thou/uL (4.8-10.8)
[2020-04-08] MEDS ORDERED: INSULIN REGULAR IN 0.9 % NACL 100 UNIT/100 ML BAG ONE (06:38)
[2020-04-08 06:52] LABS: Anion Gap 15 mmol/L (10-20); BUN (Urea Nitrogen) 13 mg/dL (7.0-18.7); Calc. Creatinine Clearance 0 mL/min (70-130); Calcium 8.5 mg/dL (7.8-10.44); Carbon Dioxide 14 mmol/L (22-29); Chloride 106 mmol/L (98-107); Glucose 289 mg/dL (70-105); Potassium 3.3 mmol/L (3.5-5.1); Sodium 132 mmol/L (136-145)
[2020-04-08] MEDS ORDERED: Potassium Chloride 20 MEQ TAB PO SCH (07:45)
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
[2020-04-08] MEDS ORDERED: Insulin Glargine 50 UNITS in Pre-Filled Syringe 1 EACH SC SCH (09:00)
[2020-04-08] MEDS ORDERED: Insulin Glargine 100 UNITS in Pre-Filled Syringe 1 EACH SC SCH (09:00)
[2020-04-08] MEDS: Levothyroxine 150 MCG TAB PO SCH (10:18)
[2020-04-08] MEDS: Insulin Glargine 50 UNITS in Pre-Filled Syringe 1 EACH SC SCH ×2 (11:00→11:01)
[2020-04-08 12:45] LABS: Anion Gap 16 mmol/L (10-20); BUN (Urea Nitrogen) 11 mg/dL (7.0-18.7); Calc. Creatinine Clearance 0 mL/min (70-130); Calcium 8.6 mg/dL (7.8-10.44); Carbon Dioxide 16 mmol/L (22-29); Chloride 105 mmol/L (98-107); Glucose 189 mg/dL (70-105); Sodium 133 mmol/L (136-145)
[2020-04-08] MEDS ORDERED: D5 1/2 NS w/20 mEq KCL 1,000 ML ONE (17:31)
[2020-04-08] MEDS ORDERED: Ibuprofen 800 MG TAB ONE (19:01)
[2020-04-08] MEDS: Cepastat Lozenges 1 LOZ PO PRN (22:58)
[2020-04-08] MEDS ORDERED: Sodium Chloride 0.9% 1,000 ML IV SCH (23:45)
[2020-04-08] MEDS ORDERED: Aspirin/APAP/Caffeine Tab (Excedrin Migraine) PO SCH (23:45)
[2020-04-09 02:31] VITALS: BMI 40.4
[2020-04-09] MEDS: Levothyroxine 150 MCG TAB PO SCH (05:52)
[2020-04-09] MEDS: Acetaminophen 325 MG TAB PO PRN ×2 (05:52→15:40)
[2020-04-09 06:08] LABS: Anion Gap 11 mmol/L (10-20); BUN (Urea Nitrogen) 5 mg/dL (7.0-18.7); Calc. Creatinine Clearance 221 mL/min (70-130); Calcium 8.1 mg/dL (7.8-10.44); Carbon Dioxide 18 mmol/L (22-29); Chloride 110 mmol/L (98-107); Glucose 124 mg/dL (70-105); Potassium 4.3 mmol/L (3.5-5.1); Sodium 135 mmol/L (136-145)
[2020-04-09 06:49] LABS: Hemoglobin 11.7 g/dL (12.0-16.0); Mean Corpuscular Hemoglobin 29.3 pg (27.0-31.0); Mean Corpuscular Volume 88.8 fL (78.0-98.0); Mean Platelet Volume 8.5 fL (7.4-10.4); Platelet Count 120 thou/uL (130-400); RBC Distribution Width 12.1 % (11.5-14.5); White Blood Cell (WBC) Count 5.7 thou/uL (4.8-10.8)
[2020-04-09 06:50] LABS: Eosinophils 1 % (0-10); Hypochromia SLIGHT = 6-15 cells (100X) (0-5/hpf); Lymphocytes 36 % (21-51); MDiff Complete? YES; Monocytes 10 % (0-10); Neutrophil 47 % (42-75); Platelet Morphology Comment Appears Adequate; Reactive Lymphocytes 6 % (0-10)
[2020-04-09] MEDS: Insulin Glargine 50 UNITS in Pre-Filled Syringe 1 EACH SC SCH ×2 (10:18→10:19)
[2020-04-09] MEDS: Sodium Chloride 0.45% 1,000 ML IV SCH (10:23)
[2020-04-09 11:53] LABS: Magnesium 1.6 mg/dL (1.6-2.6); Phosphorus 3.3 mg/dL (2.3-4.7)
[2020-04-09] MEDS ORDERED: Aspirin/APAP/Caffeine Tab (Excedrin Migraine) PO PRN (12:03)
[2020-04-09] MEDS ORDERED: Calcium Carbonate 500 MG ChewTAB PO PRN (12:04)
[2020-04-09] MEDS ORDERED: Mag-Al 1200 mg/1200 mg/30 ML UDCUP PO PRN (12:04)
[2020-04-09] MEDS ORDERED: Polyethylene Glycol 3350 17 GM Packet PO PRN (12:04)
[2020-04-09] MEDS ORDERED: Magnesium Sulfate 2 GM in Sodium Chloride 0.9% 100 ML IVPB SCH (12:15)
[2020-04-09] MEDS ORDERED: Magnesium 2 GM/50 ML 2 GM in Premix Bag 1 BAG IVPB SCH (12:45)
[2020-04-09] MEDS: Cepastat Lozenges 1 LOZ PO PRN (14:06)
[2020-04-09] MEDS: HumaLOG 300 UNITS/3 ML VIAL SC PRN ×2 (14:06→17:51)
--- NOTE | 2020-04-09 14:59 | PDOC.HOSPP ---
- Subjective Encounter Date: 04/09/20 Encounter Time: 11:00 Subjective: Patient seen and examined for diabetic ketoacidosis. Symptomatically feeling slightly better. Has sore throat along with heartburn and mild generalized headache. No focal deficit. - Objective Vital Signs & Weight: Vital Signs (12 hours) Temp Pulse Resp BP Pulse Ox 04/09/20 11:00 98.5 F 73 16 114/70 99 04/09/20 07:23 98.3 F 75 16 112/72 99 04/09/20 04:18 98.4 F 79 16 126/82 98 Weight Weight 220 lb 12.8 oz Result Diagrams: 04/09/20 06:20 04/09/20 05:46 Additional Labs: Accuchecks 04/09/20 04/09/20 04/09/20 11:29 05:48 03:21 POC Glucose 171 H 112 H 132 H 04/09/20 04/08/20 04/08/20 01:14 23:00 20:29 POC Glucose 179 H 248 H 233 H 04/08/20 04/08/20 04/08/20 15:27 09:39 05:25 POC Glucose 187 H 97 323 H Abnormal Lab Results - Last 48 hrs 04/07/20 16:13: Chloride 110 H, Carbon Dioxide 18 L, BUN 21 H 04/07/20 19:37: Potassium 5.4 H, Carbon Dioxide 14 L, Anion Gap 22 H, BUN 19 H 04/08/20 06:19: Sodium 132 L, Potassium 3.3 L, Carbon Dioxide 14 L 04/08/20 06:19: RBC 3.96 L, Hgb 11.8 L, Hct 35.2 L, Lymphocytes % 20.3 L, Neutrophils # 7.1 H, Monocytes # 0.6 H 04/08/20 06:19: B-Hydroxybutyrate 2.81 H 04/08/20 11:59: Sodium 133 L, Carbon Dioxide 16 L 04/09/20 05:46: Sodium 135 L, Chloride 110 H, Carbon Dioxide 18 L, BUN 5 L 04/09/20 06:20: RBC 4.00 L, Hgb 11.7 L, Hct 35.6 L, Plt Count 120 L Microbiology - Entire Visit 04/09/20 13:30 Throat Group A Streptococcus Screen (RACHAEL) - Final Hospitalist ROS - Review of Systems Respiratory: reports: cough, dry. denies: shortness of breath, hemoptysis, SOB with excertion, pleuritic pain, sputum, wheezing, other Cardiovascular: denies: chest pain, palpitations, orthopnea, paroxysmal noc. dyspnea, edema, light headedness, other - Medication Medications: Active Medications Generic Name Dose Route Start Last Admin Trade Name Freq PRN Reason Stop Dose Admin Acetaminophen 650 mg 04/07/20 11:38 04/09/20 05:52 Acetaminophen 325 Mg Tab PO 650 mg Q4H PRN Administration Headache/Fever/Mild Pain (1-3) Insulin Glargine 50 units/ 0.5 mls @ 0 mls/hr 04/08/20 09:00 04/09/20 10:19 Miscellaneous Medication SC 0.5 mls QAM ELANA Administration Insulin Glargine 50 units/ 0.5 mls @ 0 mls/hr 04/08/20 09:00 04/09/20 10:18 Miscellaneous Medication SC 0.5 mls QAM ELANA Administration Sodium Chloride 1,000 mls @ 75 mls/hr 04/09/20 09:30 04/09/20 10:23 1/2 Normal Saline IV 1,000 mls .[id number] ELANA Administration Magnesium Sulfate 2 gm/ Device 50 mls @ 50 mls/hr 04/09/20 12:45 04/09/20 13:25 IVPB 04/09/20 16:00 50 mls NOW ELANA Administration Insulin Human Lispro 0 units 04/07/20 22:44 04/09/20 14:06 Humalog 300 Units/3 Ml Vial SC 3 unit .AGGRESSIVE SLIDING PRN Administration Aggressive Correctional Scale Insulin Human Lispro 0 units 04/07/20 22:44 04/08/20 23:10 Humalog 300 Units/3 Ml Vial SC 2 unit .BEDTIME SLIDING SC PRN Administration Bedtime Correctional Scale Levothyroxine Sodium 150 mcg 04/08/20 06:00 04/09/20 05:52 Levothyroxine 150 Mcg Tab PO 150 mcg 0600 ELANA Administration Metoclopramide HCl 10 mg 04/07/20 17:00 04/07/20 13:42 Metoclopramide Hcl 10 Mg/2 Ml Vial IVP 10 mg Q6H PRN Administration Nausea/Vomiting Throat Lozenges 1 balbir 04/08/20 22:08 04/09/20 14:06 Cepastat Lozenges 1 Balbir PO 1 balbir Q2H PRN Administration SORE THROAT Hospitalist Exam Vitals: Vital Signs (12 hours) Temp Pulse Resp BP Pulse Ox 04/09/20 11:00 98.5 F 73 16 114/70 99 04/09/20 07:23 98.3 F 75 16 112/72 99 04/09/20 04:18 98.4 F 79 16 126/82 98 Weight Weight 220 lb 12.8 oz General Appearance: awake alert Neck: supple, no JVD Heart: no murmur, no gallops, no rubs Respiratory: no wheezes, no rales, no ronchi Gastrointestinal: soft, non-tender, normal bowel sounds Extremities: no cyanosis Neurological: no new deficit Psychiatric: normal affect, A&O x 3 Hosp A/P (1) DKA (diabetic ketoacidoses) Code(s): E11.10 - TYPE 2 DIABETES MELLITUS WITH KETOACIDOSIS WITHOUT COMA Status: Acute (2) Hypothyroidism Code(s): E03.9 - HYPOTHYROIDISM, UNSPECIFIED Status: Chronic (3) Type 1 diabetes mellitus Status: Chronic - Plan DVT proph w/SCDs 25-year-old female with diabetes mellitus type 1 on 100 units of Lantus daily with sliding scale presented to the hospital on 04/07 with nausea along with vomiting. Her work-up was consistent with diabetic ketoacidosis with ketones of 5.91. Diabetic ketoacidosis Resolved. Will change blood sugar check before meals at bedtime from every 2 hourly. Continue aggressive sliding scale with home dose of Lantus insulin. Recheck labs in a.m. Cough, sore throat with low-grade fever on admission. Influenza and Covid testing was negative. Will obtain a chest x-ray to rule out infectious etiology as well as strep screen. Patient probably has viral upper respiratory tract infection Acute kidney injury due to DKA/dehydration Change IV fluid to half NS Multiple electrolyte abnormality including hyponatremia, hyperkalemia/hypokalemia/hypomagnesemia We will replace magnesium Morbid obesity with a BMI of 40.4 Lifestyle modification emphasized Hypothyroidism Continue levothyroxine Discharge disposition Probably home in 24 hours if stable. Will recheck labs in a.m.
[2020-04-09] MEDS ORDERED: Loratadine 10 MG TAB PO SCH (15:15)
--- NOTE | 2020-04-09 16:09 | RAD ---
PA AND LATERAL CHEST: 04/09/20 HISTORY: Cough and fever. COMPARISON: 08/26/15 study. Heart size and mediastinum are within normal limits. The lungs are clear of infiltrates. No significa nt bony findings. IMPRESSION: No active intrathoracic disease. POS: LISA
[2020-04-10] MEDS: Sodium Chloride 0.45% 1,000 ML IV SCH (00:54)
[2020-04-10] MEDS: Levothyroxine 150 MCG TAB PO SCH (05:16)
[2020-04-10] MEDS: Cepastat Lozenges 1 LOZ PO PRN (05:19)
[2020-04-10 07:13] LABS: #Eosinphils 0.1 thou/uL (0.0-0.7); #Lymphocytes 2.6 thou/uL (1.20-3.40); #Monocytes 0.5 thou/uL (0.11-0.59); %Basophils 0.9 % (0.0-1.0); %Lymphocytes 49.1 % (21.0-51.0); %Monocytes 9.9 % (0.0-10.0); %Neutrophils 38.2 % (42.0-75.0); Hemoglobin 11.7 g/dL (12.0-16.0); Mean Corpuscular HGB CONC 33.3 g/dL (32.0-36.0); Mean Corpuscular Hemoglobin 29.6 pg (27.0-31.0); Mean Platelet Volume 8.5 fL (7.4-10.4); Platelet Count 174 thou/uL (130-400); RBC Distribution Width 12.1 % (11.5-14.5); Red Blood Cell (RBC) Count 3.95 mill/uL (4.20-5.40); White Blood Cell (WBC) Count 5.2 thou/uL (4.8-10.8)
[2020-04-10 07:36] LABS: Anion Gap 11 mmol/L (10-20); BUN (Urea Nitrogen) 7 mg/dL (7.0-18.7); Calc. Creatinine Clearance 250 mL/min (70-130); Calcium 8.4 mg/dL (7.8-10.44); Carbon Dioxide 25 mmol/L (22-29); Chloride 110 mmol/L (98-107); Glucose 62 mg/dL (70-105); Magnesium 1.9 mg/dL (1.6-2.6); Potassium 3.8 mmol/L (3.5-5.1); Sodium 142 mmol/L (136-145)
[2020-04-10] MEDS ORDERED: Magnesium 2 GM/50 ML 2 GM in Premix Bag 1 BAG IVPB SCH (09:00)
[2020-04-10] MEDS ORDERED: Loratadine 10 MG TAB PO SCH (09:00)
[2020-04-10] MEDS: Insulin Glargine 50 UNITS in Pre-Filled Syringe 1 EACH SC SCH (09:31)
[2020-04-10] MEDS: HumaLOG 300 UNITS/3 ML VIAL SC PRN (12:11)
[2020-04-10 12:48] VITALS: BP 126/82; TEMP 98.7
--- NOTE | 2020-04-10 18:12 | EKG ---
Test Reason : Blood Pressure : / mmHG Vent. Rate : 108 BPM Atrial Rate : 108 BPM P-R Int : 132 ms QRS Dur : 082 ms QT Int : 336 ms P-R-T Axes : 050 053 049 degrees QTc Int : 450 ms Sinus tachycardia Otherwise normal ECG Confirmed by KEZIA GRIFFIN M.D. ([id number]), film editor supervisor JERED MACHADO ([id number]) on 04/10/2020 6:12:13 PM Referred By: Confirmed By:KEZIA GRIFFIN M.D.
--- NOTE | 2020-04-11 18:30 | DIS ---
DATE OF ADMISSION: 04/07/2020 DATE OF DISCHARGE: 04/10/2020 DISCHARGE DISPOSITION: To home. PRIMARY DISCHARGE DIAGNOSES: Diabetic ketoacidosis with acute kidney injury and intractable nausea and vomiting resolved, hypothyroidism, morbid obesity with BMI of 40. PROCEDURES DONE DURING HOSPITALIZATION: Chest x-ray done showed no acute cardiopulmonary abnormality. Group A Streptococcus throat swab was negative including culture. H and H 11 and 35 platelet count 174. Discharge BUN and creatinine are 7 and 0.5 admitting BUN and creatinine was 24 and 1.2 with serum sugars of 571 on the day of admission. Serum test was negative. COVID-19 PCR negative. Beta hydroxybutyrate levels were 5.91 on admission. DISCHARGE MEDICATIONS: The patient to continue Lantus 100 units subcu daily and Humalog sliding scale as before. ALLERGIES: ALLERGIC TO BACTRIM, PENICILLIN, MORPHINE, AND BLUEBERRY. DISCHARGE PLAN: The patient to follow up with her primary banquet pilot Dr. Gallardo in 1 week. BRIEF COURSE DURING HOSPITALIZATION: The patient initially got admitted on the with complaints of severe nausea and vomiting. The initial serum glucose was more than 600. The patient presented with DKA and was placed on insulin drip and DKA protocol was followed. After her gap was closed, she was transferred to medical floor. Her nausea and vomiting have completely resolved. Ms. Trevino had severe dehydration with acute kidney injury, all of which has resolved. She presented with throat pain and hence the throat swab for strep was obtained, which was negative. Her chest x-ray did not reveal any acute abnormality. She is hemodynamically stable, ambulating and eating well prior to discharge. She was counseled with regard to compliance with medications/insulin and diet. She will follow up with Dr. Dr. Gallardo, her primary banquet pilot in 1 week. Job ID: [id number]
== END 2020-04-10 12:37 | disposition home or self-care (01) | DRG 638 ==
LOC: ERS 06:37 → ERHOLD 11:04 → T4-A 04-08 19:48
PROVIDERS: ADMIT Internal Medicine; ATTEND Internal Medicine
DX: E10.10 Type 1 diabetes mellitus with ketoacidosis without coma (principal); N17.9 Acute kidney failure, unspecified; Z20.822 Contact with and (suspected) exposure to COVID-19; E87.1 Hypo-osmolality and hyponatremia; E03.9 Hypothyroidism, unspecified; F41.9 Anxiety disorder, unspecified; E10.620 Type 1 diabetes mellitus with diabetic dermatitis; E86.0 Dehydration; E87.5 Hyperkalemia; E87.6 Hypokalemia; E83.42 Hypomagnesemia; E66.01 Morbid (severe) obesity due to excess calories; Z68.41 Body mass index [BMI] 40.0-44.9, adult; Z90.49 Acquired absence of other specified parts of digestive tract; Z88.1 Allergy status to other antibiotic agents; Z88.5 Allergy status to narcotic agent; Z88.2 Allergy status to sulfonamides; Z88.8 Allergy status to other drugs, medicaments and biological substances; Z91.018 Allergy to other foods; Z79.890 Hormone replacement therapy; Z79.4 Long term (current) use of insulin; Z79.899 Other long term (current) drug therapy
CPT/HCPCS: 0240U; 36415; 36416; 71046; 80048; 80053; 81003; 82010; 83690; 83735; 84100; 84443; 84703; 85025; 87081; 87430; 93005; 96365; 96366; 96367; J1815; J2405; J2765; J3475; J3480; J3490

== ENCOUNTER 2020-04-16 15:46 | Emergency (ER) | payer BC ==
[2020-04-16 16:26] LABS: #Eosinphils 0.1 thou/uL (0.0-0.7); #Lymphocytes 1.7 thou/uL (1.20-3.40); #Monocytes 0.6 thou/uL (0.11-0.59); #Neutrophils 2.7 thou/uL (1.40-6.50); %Basophils 0.8 % (0.0-1.0); %Eosinophils 1.5 % (0.0-10.0); %Lymphocytes 33.4 % (21.0-51.0); %Monocytes 11.8 % (0.0-10.0); %Neutrophils 52.5 % (42.0-75.0); Hemoglobin 12.8 g/dL (12.0-16.0); Mean Corpuscular Hemoglobin 29.5 pg (27.0-31.0); Mean Corpuscular Volume 89.5 fL (78.0-98.0); Mean Platelet Volume 8.2 fL (7.4-10.4); Platelet Count 205 thou/uL (130-400); RBC Distribution Width 12.2 % (11.5-14.5); Red Blood Cell (RBC) Count 4.34 mill/uL (4.20-5.40); White Blood Cell (WBC) Count 5.2 thou/uL (4.8-10.8)
[2020-04-16 16:46] LABS: ALT (SGPT) 38 U/L (8-55); AST (SGOT) 29 U/L (5-34); Albumin 3.5 g/dL (3.5-5.0); Alkaline Phosphatase 124 U/L (40-110); Anion Gap 14 mmol/L (10-20); BUN (Urea Nitrogen) 11 mg/dL (7.0-18.7); Bilirubin, Total 0.3 mg/dL (0.2-1.2); Calc. Creatinine Clearance 0 mL/min (70-130); Carbon Dioxide 24 mmol/L (22-29); Chloride 105 mmol/L (98-107); Globulin 3.2 g/dL (2.4-3.5); Glucose 192 mg/dL (70-105); Potassium 3.8 mmol/L (3.5-5.1); Protein, Total 6.7 g/dL (6.0-8.3); Sodium 139 mmol/L (136-145)
[2020-04-16 17:43] LABS: Bilirubin Negative (Negative); Blood, Urine Negative (Negative); Clarity Clear (Clear); Glucose, Urine (Dipstick) Greater than 1000 mg/dL (Negative); Ketone, Urine Negative (Negative); Leukocyte Negative Leu/uL (Negative); Nitrite Negative (Negative); Protein, Urine (Dipstick) Negative (Neg-Trace); Specific Gravity, Urine 1.027 (1.002-1.036); Urobilinogen Normal mg/dL (Less than 2); pH, Urine 6.5 (5.0-9.0)
--- NOTE | 2020-04-16 17:43 | RAD ---
Exam: Chest one view HISTORY:Dyspnea Comparison: 03/23/2018 FINDINGS: Cardiac silhouette: Normal Aorta: Unremarkable Pulmonary vessels: Normal Costophrenic angles: Clear LUNGS: No masses or consolidation. Pneumothorax: None Osseous abnormalities: None IMPRESSION: No acute cardiopulmonary process.
--- NOTE | 2020-04-16 18:06 | ULT ---
EXAM: Bilateral lower extremity venous ultrasound HISTORY: Bilateral lower extremity swelling and pain. COMPARISON: None TECHNIQUE: Multiplanar grayscale and color Doppler images were obtained in a bilateral lower extremit y venous ultrasound. Spectral analysis of the Doppler waveforms were performed. FINDINGS: The bilateral common femoral vein, profunda femoral veins, superficial femoral veins, and p opliteal veins are normal in appearance without visible thrombus. These vessels demonstrate normal compression, flow, and augmentation. The bilateral posterior tibial veins, profunda femoral veins and greater saphenous veins are patent w ithout evidence of DVT. IMPRESSION: No evidence of DVT in the left or right lower extremity.
== END 2020-04-16 19:03 | disposition home or self-care (01) ==
LOC: ERS 15:46
DX: R60.1 Generalized edema (principal); E03.9 Hypothyroidism, unspecified; E10.65 Type 1 diabetes mellitus with hyperglycemia; E66.9 Obesity, unspecified
CPT/HCPCS: 36415; 71045; 80053; 81003; 83880; 84443; 84484; 85025; 93005; 93970

== ENCOUNTER 2022-08-16 15:30 | Emergency (ER) | payer BC ==
[2022-08-16] MEDS ORDERED: fentaNYL 50 mcg/mL 1 mL Vial ONE ×2 (16:03→16:06)
[2022-08-16] MEDS ORDERED: LORazepam 2 MG/ML SYR.(CARPUJECT) ONE (16:04)
[2022-08-16] MEDS ORDERED: Ketorolac Tromethamine 30 MG/ML VIAL ONE (16:04)
== END 2022-08-16 19:03 | disposition home or self-care (01) ==
LOC: ERS 15:30
DX: S32.010A Wedge compression fracture of first lumbar vertebra, initial encounter for closed fracture (principal); E03.9 Hypothyroidism, unspecified; E11.9 Type 2 diabetes mellitus without complications; E66.9 Obesity, unspecified; W01.0XXA Fall on same level from slipping, tripping and stumbling without subsequent striking against object, initial encounter; Y92.017 Garden or yard in single-family (private) house as the place of occurrence of the external cause
CPT/HCPCS: 72131; 96374; 96375; J1885; J2060; J3010

== ENCOUNTER 2022-12-28 12:35 | Inpatient (IN) | payer BC ==
[~2022-12-28 12:35] MED LIST: Iopamidol-370 76% 500 ML MDV (1 ML CHARGE) ONE
[2022-12-28] MEDS ORDERED: Ondansetron PF 4 MG/2 ML Vial ONE (13:21)
[2022-12-28] MEDS ORDERED: Naloxone HCl 0.4 mg/ml Vial ONE (13:34)
[2022-12-28 13:45] LABS: Base Excess -21.7 mEq/L (-2.0 to +3.0); Calcium, Ionized (venous) 1.29 mmol/L (1.16-1.32); Chloride (VBG) 104 mmol/L (98-106); Hematocrit-VBG 40 % (36.0-47.0); Hemoglobin (Hb) 13.5 g/dL (11.7-15.5); Potassium (VBG) 5.46 mmol/L (3.70-5.30); Sodium 134 mmol/L (133-146)
[2022-12-28 13:46] LABS: #Basophils 0.1 thou/uL (0.0-0.2); #Monocytes 0.7 thou/uL (0.11-0.59); #Neutrophils 10.2 thou/uL (1.40-6.50); %Basophils 0.4 % (0.0-1.0); %Eosinophils 0.1 % (0.0-10.0); %Lymphocytes 9.9 % (21.0-51.0); %Monocytes 5.6 % (0.0-10.0); %Neutrophils 83.5 % (42.0-75.0); Hematocrit 39.9 % (36.0-47.0); Hemoglobin 12.7 g/dL (12.0-16.0); Mean Corpuscular HGB CONC 31.8 g/dL (32.0-36.0); Mean Corpuscular Hemoglobin 28.5 pg (27.0-31.0); Mean Corpuscular Volume 89.7 fl (78.0-98.0); Mean Platelet Volume 11.9 fL (7.4-10.4); Platelet Count 153 10x3/uL (130-400); RBC Distribution Width 13.4 % (11.5-14.5); Red Blood Cell (RBC) Count 4.45 mill/uL (4.20-5.40); White Blood Cell (WBC) Count 12.2 10x3/uL (4.8-10.8)
[2022-12-28 13:49] LABS: Actual Bicarbonate (HCO3v) 6.7 mEq/L (22-28); pH (venous) 7.081 (7.32-7.43)
[2022-12-28 13:59] LABS: BHCG - Serum Negative (NEGATIVE); Pregs Control Background? CLEAR/WHITE (CLR/WHITE); Pregs Control Bar Appear? YES (CONTROL BAR)
[2022-12-28] MEDS ORDERED: INSULIN REGULAR IN 0.9 % NACL 100 UNITS/100 ML BAG ONE (14:02)
[2022-12-28 14:14] LABS: Phosphorus 4.1 mg/dL (2.3-4.7)
[2022-12-28 14:16] LABS: ALT (SGPT) 17 U/L (8-55); AST (SGOT) 15 U/L (5-34); Albumin 4.5 g/dL (3.5-5.0); Alkaline Phosphatase 110 U/L (40-110); BUN (Urea Nitrogen) 10 mg/dL (7.0-18.7); Bilirubin, Total 0.4 mg/dL (0.2-1.2); Calc. Creatinine Clearance 0 mL/min (70-130); Calcium 9.5 mg/dL (7.8-10.44); Chloride 106 mmol/L (98-107); Estimated GFR 58; Globulin 2.8 g/dL (2.4-3.5); Lipase Less than 4 U/L (8-78); Magnesium 1.9 mg/dL (1.6-2.6); Potassium 5.4 mmol/L (3.5-5.1); Protein, Total 7.3 g/dL (6.0-8.3); Sodium 132 mmol/L (136-145)
[2022-12-28 14:46] LABS: Carbon Dioxide Less than 8 mmol/L (22-29); Glucose 535 mg/dL (70-105)
[2022-12-28 15:28] LABS: Acetaminophen Less than 10 mcg/mL (10.0-30.0); Alcohol Less than 10.0 mg/dL (Less than 10); Salicylate Less than 8.0 mg/dL (15.0-30.0)
[2022-12-28 16:16] LABS: Troponin I Less than 0.010 ng/mL (< 0.028)
[2022-12-28] MEDS ORDERED: Promethazine HCl 12.5 MG in Sodium Chloride 0.9% 50 ML IVPB SCH (16:45)
[2022-12-28 17:36] LABS: Amphetamine Not Detected (NotDetected); Barbiturates Screen Not Detected (NotDetected); Benzodiazepine Screen Not Detected (NotDetected); Cocaine Metabolite Screen Not Detected (NotDetected); Methadone Not Detected (NotDetected); Methamphetamine Not Detected (NotDetected); Opiate Screen Not Detected (NotDetected); Oxycodone Screen Not Detected (NotDetected); Phencyclidine (PCP) Not Detected (NotDetected); THC/Cannabinoid Screen Not Detected (NotDetected); Tricyclic Screen Not Detected (NotDetected)
[2022-12-28 17:44] LABS: Bacteria/HPF None Seen HPF (None Seen); Bilirubin Negative (Negative); Blood, Urine Negative (Negative); CAUTI Indications for Culture Dysuria,urgency,freq; Clarity Clear (Clear); Glucose, Urine (Dipstick) Greater than 1000 mg/dL (Negative); Ketone, Urine Greater than 150 mg/dL (Negative); Leukocyte Negative Leu/uL (Negative); Nitrite Negative (Negative); Protein, Urine (Dipstick) 10 mg/dL (Neg-Trace); RBC/HPF 0-3 HPF (0-3); Specific Gravity, Urine 1.021 (1.002-1.036); Squamous Epithelial 0-3 HPF (0-3); Urobilinogen Normal mg/dL (Less than 2); pH, Urine 5.5 (5.0-9.0)
[2022-12-28 17:45] LABS: Urine Culture Reflex No No
[2022-12-28] MEDS ORDERED: Dextrose 5 %-0.45 % NaCl 1,000 ML IV PRN (19:03)
[2022-12-28] MEDS ORDERED: NS 0.9% w/ 20 MEQ KCL 1,000 ML IV PRN ×2 (19:03)
[2022-12-28] MEDS ORDERED: Dextrose 50% Abboject 50 ML SYRINGE SLOW IVP PRN (19:03)
[2022-12-28] MEDS ORDERED: Sodium Chloride 0.9% 1,000 ML IV PRN ×4 (19:03)
[2022-12-28] MEDS ORDERED: HUMULIN R 100 UNITS in Sodium Chloride 0.9% 100 ML IVPB SCH (19:03)
[2022-12-28] MEDS ORDERED: Electrolyte Replacement Protocol 1 EACH IVPB SCH (19:03)
[2022-12-28] MEDS ORDERED: Magnesium 2 GM/50 ML(in water) 2 GM in Premix 1 BAG IVPB SCH (19:15)
[2022-12-28 19:49] LABS: BUN (Urea Nitrogen) 11 mg/dL (7.0-18.7); Calc. Creatinine Clearance 88 mL/min (70-130); Calcium 9.1 mg/dL (7.8-10.44); Chloride 110 mmol/L (98-107); Estimated GFR 56; Potassium 4.9 mmol/L (3.5-5.1); Sodium 135 mmol/L (136-145)
[2022-12-28 19:55] LABS: Carbon Dioxide Less than 8 mmol/L (22-29); Glucose 431 mg/dL (70-105)
[2022-12-28] MEDS ORDERED: Metoclopramide HCl 10 MG/2 ML VIAL IVP SCH (21:00)
[2022-12-28] MEDS: D5 1/2 NS w/20 mEq KCL 1,000 ML IV PRN (21:36)
[2022-12-28] MEDS: Promethazine HCl 25 MG in Sodium Chloride 0.9% 50 ML IVPB PRN (23:12)
[2022-12-28 23:41] LABS: Base Excess -14.8 mEq/L (-2.0 to +3.0); Calcium, Ionized (venous) 1.25 mmol/L (1.16-1.32); Chloride (VBG) 113 mmol/L (98-106); Hematocrit-VBG 37 % (36.0-47.0); Hemoglobin (Hb) 12.6 g/dL (11.7-15.5); Potassium (VBG) 4.22 mmol/L (3.70-5.30); Sodium 141 mmol/L (133-146); pH (venous) 7.259 (7.32-7.43)
[2022-12-28 23:58] LABS: Anion Gap 16 mmol/L (10-20); BUN (Urea Nitrogen) 9 mg/dL (7.0-18.7); Calc. Creatinine Clearance 109 mL/min (70-130); Calcium 8.6 mg/dL (7.8-10.44); Carbon Dioxide 10 mmol/L (22-29); Chloride 116 mmol/L (98-107); Estimated GFR 73; Glucose 170 mg/dL (70-105); Potassium 4.1 mmol/L (3.5-5.1); Sodium 138 mmol/L (136-145)
[2022-12-29] MEDS: D5 1/2 NS w/20 mEq KCL 1,000 ML IV PRN ×3 (01:55→11:33)
[2022-12-29 05:07] LABS: #Basophils 0.1 thou/uL (0.0-0.2); #Neutrophils 9.6 thou/uL (1.40-6.50); %Basophils 0.4 % (0.0-1.0); %Lymphocytes 9.5 % (21.0-51.0); %Monocytes 8.5 % (0.0-10.0); %Neutrophils 81.2 % (42.0-75.0); Hematocrit 36.9 % (36.0-47.0); Hemoglobin 11.8 g/dL (12.0-16.0); Mean Corpuscular Hemoglobin 27.9 pg (27.0-31.0); Mean Corpuscular Volume 87.2 fl (78.0-98.0); Mean Platelet Volume 11.2 fL (7.4-10.4); Platelet Count 213 10x3/uL (130-400); RBC Distribution Width 13.7 % (11.5-14.5); Red Blood Cell (RBC) Count 4.23 mill/uL (4.20-5.40); White Blood Cell (WBC) Count 11.9 10x3/uL (4.8-10.8)
[2022-12-29 05:12] LABS: Hemoglobin A1c 10.8 % (4.0-6.0)
[2022-12-29 05:33] LABS: Anion Gap 17 mmol/L (10-20); BUN (Urea Nitrogen) 8 mg/dL (7.0-18.7); Calc. Creatinine Clearance 114 mL/min (70-130); Calcium 8.6 mg/dL (7.8-10.44); Carbon Dioxide 10 mmol/L (22-29); Chloride 114 mmol/L (98-107); Estimated GFR 76; Glucose 191 mg/dL (70-105); Potassium 4.4 mmol/L (3.5-5.1); Sodium 137 mmol/L (136-145)
[2022-12-29] MEDS: Promethazine HCl 25 MG in Sodium Chloride 0.9% 50 ML IVPB PRN ×3 (05:36→19:46)
[2022-12-29 07:27] VITALS: BMI 36.3
[2022-12-29 13:41] LABS: Anion Gap 9 mmol/L (10-20); BUN (Urea Nitrogen) 5 mg/dL (7.0-18.7); Calc. Creatinine Clearance 140 mL/min (70-130); Calcium 8.8 mg/dL (7.8-10.44); Carbon Dioxide 16 mmol/L (22-29); Chloride 114 mmol/L (98-107); Estimated GFR 96; Glucose 130 mg/dL (70-105); Potassium 3.8 mmol/L (3.5-5.1); Sodium 135 mmol/L (136-145)
[2022-12-29 14:08] LABS: Actual Bicarbonate (HCO3v) 10.5 mEq/L (22-28)
[2022-12-29] MEDS: Lorazepam 2 MG/ML VIAL SLOW IVP PRN (15:14)
[2022-12-29] MEDS ORDERED: Insulin Glargine 30 UNITS/0.3 ML VIAL SC SCH (19:27)
[2022-12-29] MEDS ORDERED: Glucagon 1 MG/ML KIT IM PRN ×2 (19:28)
[2022-12-29] MEDS ORDERED: Dextrose 5% in Water 1,000 ML IV PRN (19:28)
[2022-12-29] MEDS ORDERED: Dextrose 50% Abboject 50 ML SYRINGE SLOW IVP PRN ×2 (19:28)
[2022-12-29] MEDS ORDERED: HumaLOG 300 UNITS/3 ML VIAL SC PRN ×2 (19:28)
[2022-12-29] MEDS ORDERED: diphenhydrAMINE 50 MG/ML VIAL IVP SCH ×2 (19:45→22:45)
[2022-12-29] MEDS: Famotidine/PF 20 mg/2ml Vial SLOW IVP SCH (19:46)
[2022-12-29 20:44] LABS: Anion Gap 13 mmol/L (10-20); BUN (Urea Nitrogen) 4 mg/dL (7.0-18.7); Calc. Creatinine Clearance 145 mL/min (70-130); Calcium 8.7 mg/dL (7.8-10.44); Carbon Dioxide 13 mmol/L (22-29); Chloride 110 mmol/L (98-107); Estimated GFR 100; Glucose 274 mg/dL (70-105); Potassium 4.1 mmol/L (3.5-5.1); Sodium 132 mmol/L (136-145)
[2022-12-30] MEDS: Promethazine HCl 25 MG in Sodium Chloride 0.9% 50 ML IVPB PRN ×4 (02:11→23:28)
[2022-12-30 04:41] LABS: Anion Gap 16 mmol/L (10-20); BUN (Urea Nitrogen) 6 mg/dL (7.0-18.7); Calc. Creatinine Clearance 129 mL/min (70-130); Calcium 8.7 mg/dL (7.8-10.44); Carbon Dioxide 13 mmol/L (22-29); Chloride 108 mmol/L (98-107); Estimated GFR 87; Potassium 4.3 mmol/L (3.5-5.1); Sodium 133 mmol/L (136-145)
[2022-12-30 04:43] LABS: Glucose 492 mg/dL (70-105)
[2022-12-30] MEDS: HumaLOG 300 UNITS/3 ML VIAL SC PRN ×3 (04:58→08:15)
[2022-12-30] MEDS: Sodium Chloride 0.9% 1,000 ML IV SCH ×2 (04:59→15:13)
[2022-12-30] MEDS ORDERED: Insulin Glargine 30 UNITS/0.3 ML VIAL SC SCH (05:00)
[2022-12-30] MEDS ORDERED: Sodium Chloride 0.9% 1,000 ML IV SCH (05:00)
[2022-12-30] MEDS: Famotidine/PF 20 mg/2ml Vial SLOW IVP SCH ×2 (08:14→19:58)
[2022-12-30 10:44] LABS: Anion Gap 15 mmol/L (10-20); BUN (Urea Nitrogen) 5 mg/dL (7.0-18.7); Calc. Creatinine Clearance 169 mL/min (70-130); Calcium 8.5 mg/dL (7.8-10.44); Carbon Dioxide 17 mmol/L (22-29); Chloride 112 mmol/L (98-107); Estimated GFR 119; Glucose 144 mg/dL (70-105); Potassium 3.8 mmol/L (3.5-5.1); Sodium 140 mmol/L (136-145)
[2022-12-30] MEDS: Lorazepam 2 MG/ML VIAL SLOW IVP PRN ×2 (12:48→19:57)
[2022-12-30] MEDS: Acetaminophen 325 MG TAB PO PRN (12:48)
[2022-12-30 17:25] LABS: Anion Gap 11 mmol/L (10-20); BUN (Urea Nitrogen) 5 mg/dL (7.0-18.7); Calc. Creatinine Clearance 173 mL/min (70-130); Calcium 8.5 mg/dL (7.8-10.44); Carbon Dioxide 19 mmol/L (22-29); Chloride 112 mmol/L (98-107); Estimated GFR 121; Glucose 144 mg/dL (70-105); Potassium 3.6 mmol/L (3.5-5.1); Sodium 138 mmol/L (136-145)
[2022-12-30] MEDS: Insulin Glargine 30 UNITS/0.3 ML VIAL SC SCH ×2 (19:58→23:25)
[2022-12-31] MEDS: Sodium Chloride 0.9% 1,000 ML IV SCH ×3 (01:00→20:57)
[2022-12-31] MEDS: Lorazepam 2 MG/ML VIAL SLOW IVP PRN ×3 (02:27→14:58)
[2022-12-31] MEDS: Promethazine HCl 25 MG in Sodium Chloride 0.9% 50 ML IVPB PRN ×2 (05:22→14:52)
[2022-12-31] MEDS: HumaLOG 300 UNITS/3 ML VIAL SC PRN ×2 (05:22→14:21)
[2022-12-31 07:37] LABS: Anion Gap 11 mmol/L (10-20); BUN (Urea Nitrogen) 5 mg/dL (7.0-18.7); Calc. Creatinine Clearance 183 mL/min (70-130); Calcium 8.5 mg/dL (7.8-10.44); Carbon Dioxide 19 mmol/L (22-29); Chloride 110 mmol/L (98-107); Estimated GFR 123; Glucose 224 mg/dL (70-105); Potassium 3.3 mmol/L (3.5-5.1); Sodium 137 mmol/L (136-145)
[2022-12-31] MEDS ORDERED: FLU VACC QS2023-24(6MOS UP)/PF 60 MCG/0.5 ML SYRINGE IM ONE (09:00)
[2022-12-31] MEDS: Potassium Chloride 20 MEQ TAB PO SCH ×2 (09:06→09:15)
[2022-12-31] MEDS: Famotidine/PF 20 mg/2ml Vial SLOW IVP SCH ×2 (09:07→20:54)
[2022-12-31] MEDS: Potassium Chloride 20 MEQ in Premix 1 BAG IVPB SCH ×2 (11:40→14:05)
[2022-12-31] MEDS: Insulin Glargine 30 UNITS/0.3 ML VIAL SC SCH (20:55)
[2023-01-01] MEDS: Insulin Glargine 30 UNITS/0.3 ML VIAL SC SCH ×2 (00:22→22:20)
[2023-01-01 06:07] LABS: Anion Gap 13 mmol/L (10-20); BUN (Urea Nitrogen) Less than 4 mg/dL (7.0-18.7); Calc. Creatinine Clearance 225 mL/min (70-130); Calcium 8.1 mg/dL (7.8-10.44); Carbon Dioxide 19 mmol/L (22-29); Chloride 109 mmol/L (98-107); Estimated GFR 129; Glucose 185 mg/dL (70-105); Potassium 3.3 mmol/L (3.5-5.1); Sodium 138 mmol/L (136-145)
[2023-01-01] MEDS: Potassium Chloride 20 MEQ in Premix 1 BAG IVPB SCH ×2 (08:10→10:39)
[2023-01-01] MEDS: Famotidine/PF 20 mg/2ml Vial SLOW IVP SCH (08:10)
[2023-01-01] MEDS: Sodium Chloride 0.9% 1,000 ML IV SCH ×3 (08:16→18:51)
[2023-01-01] MEDS: Acetaminophen 325 MG TAB PO PRN (11:14)
[2023-01-01] MEDS: HumaLOG 300 UNITS/3 ML VIAL SC PRN ×2 (11:47→16:34)
[2023-01-01] MEDS ORDERED: Pantoprazole 40 MG VIAL IVP SCH (14:45)
[2023-01-01] MEDS: Promethazine HCl 25 MG in Sodium Chloride 0.9% 50 ML IVPB PRN (18:52)
[2023-01-01] MEDS: Lorazepam 2 MG/ML VIAL SLOW IVP PRN (22:19)
[2023-01-01] MEDS: Pantoprazole 40 MG VIAL IVP SCH (22:20)
[2023-01-02] MEDS: Sodium Chloride 0.9% 1,000 ML IV SCH ×3 (03:08→18:28)
[2023-01-02 06:14] LABS: Anion Gap 9 mmol/L (10-20); BUN (Urea Nitrogen) Less than 4 mg/dL (7.0-18.7); Calc. Creatinine Clearance 220 mL/min (70-130); Calcium 8.1 mg/dL (7.8-10.44); Carbon Dioxide 23 mmol/L (22-29); Chloride 109 mmol/L (98-107); Estimated GFR 129; Glucose 99 mg/dL (70-105); Potassium 3.2 mmol/L (3.5-5.1); Sodium 138 mmol/L (136-145)
[2023-01-02] MEDS: Promethazine HCl 25 MG in Sodium Chloride 0.9% 50 ML IVPB PRN ×3 (08:15→23:13)
[2023-01-02] MEDS: Pantoprazole 40 MG VIAL IVP SCH ×2 (10:31→21:56)
[2023-01-02] MEDS ORDERED: Lidocaine 2% Viscous Solution 10 ML, Aluminum & Magnesium Hydroxide 30 ML SSW SCH (12:00)
[2023-01-02] MEDS ORDERED: Potassium Bicarbonate/Cit Ac 20 MEQ TAB PO SCH (13:00)
[2023-01-02 15:25] LABS: #Eosinphils 0.1 thou/uL (0.0-0.7); #Monocytes 0.4 thou/uL (0.11-0.59); #Neutrophils 2.7 thou/uL (1.40-6.50); %Basophils 0.8 % (0.0-1.0); %Eosinophils 1.6 % (0.0-10.0); %Lymphocytes 36.5 % (21.0-51.0); %Monocytes 8.3 % (0.0-10.0); %Neutrophils 52.4 % (42.0-75.0); Hemoglobin 12.1 g/dL (12.0-16.0); Mean Corpuscular HGB CONC 32.7 g/dL (32.0-36.0); Mean Corpuscular Hemoglobin 28.3 pg (27.0-31.0); Mean Corpuscular Volume 86.4 fl (78.0-98.0); Mean Platelet Volume 10.6 fL (7.4-10.4); Platelet Count 224 10x3/uL (130-400); RBC Distribution Width 13.1 % (11.5-14.5); Red Blood Cell (RBC) Count 4.28 mill/uL (4.20-5.40); White Blood Cell (WBC) Count 5.1 10x3/uL (4.8-10.8)
[2023-01-02 15:54] LABS: Lactic Acid 1.6 mmol/L (0.5-2.2)
[2023-01-02 15:57] LABS: Albumin 3.5 g/dL (3.5-5.0); Alkaline Phosphatase 92 U/L (40-110); Anion Gap 15 mmol/L (10-20); BUN (Urea Nitrogen) Less than 4 mg/dL (7.0-18.7); Bilirubin, Total 0.3 mg/dL (0.2-1.2); Calc. Creatinine Clearance 178 mL/min (70-130); Calcium 8.4 mg/dL (7.8-10.44); Carbon Dioxide 20 mmol/L (22-29); Chloride 103 mmol/L (98-107); Estimated GFR 122; Globulin 2.6 g/dL (2.4-3.5); Glucose 205 mg/dL (70-105); Potassium 3.5 mmol/L (3.5-5.1); Protein, Total 6.1 g/dL (6.0-8.3); Sodium 134 mmol/L (136-145)
[2023-01-02 15:58] LABS: ALT (SGPT) 13 U/L (8-55); AST (SGOT) 20 U/L (5-34); Lipase 7 U/L (8-78)
[2023-01-02] MEDS: HumaLOG 300 UNITS/3 ML VIAL SC PRN (17:06)
[2023-01-02] MEDS: Lorazepam 2 MG/ML VIAL SLOW IVP PRN (18:28)
[2023-01-02] MEDS: Insulin Glargine 30 UNITS/0.3 ML VIAL SC SCH (21:56)
[2023-01-02] MEDS: Sucralfate 1 GM/10 ML UDCUP PO SCH ×2 (21:58→22:41)
[2023-01-02 23:21] VITALS: TEMP 99.4
[2023-01-03] MEDS: Sodium Chloride 0.9% 1,000 ML IV SCH ×2 (03:46→04:30)
[2023-01-03 05:02] LABS: #Eosinphils 0.1 thou/uL (0.0-0.7); #Monocytes 0.6 thou/uL (0.11-0.59); #Neutrophils 2.2 thou/uL (1.40-6.50); %Basophils 0.6 % (0.0-1.0); %Eosinophils 2.7 % (0.0-10.0); %Lymphocytes 42.8 % (21.0-51.0); %Monocytes 11.3 % (0.0-10.0); %Neutrophils 42.2 % (42.0-75.0); Hematocrit 32.4 % (36.0-47.0); Hemoglobin 10.7 g/dL (12.0-16.0); Mean Corpuscular Hemoglobin 28.3 pg (27.0-31.0); Mean Corpuscular Volume 85.7 fl (78.0-98.0); Mean Platelet Volume 10.7 fL (7.4-10.4); Platelet Count 175 10x3/uL (130-400); RBC Distribution Width 13.1 % (11.5-14.5); Red Blood Cell (RBC) Count 3.78 mill/uL (4.20-5.40); White Blood Cell (WBC) Count 5.2 10x3/uL (4.8-10.8)
[2023-01-03 05:32] LABS: ALT (SGPT) 8 U/L (8-55); AST (SGOT) 14 U/L (5-34); Albumin 3.2 g/dL (3.5-5.0); Alkaline Phosphatase 78 U/L (40-110); Anion Gap 9 mmol/L (10-20); BUN (Urea Nitrogen) Less than 4 mg/dL (7.0-18.7); Bilirubin, Total 0.3 mg/dL (0.2-1.2); Calc. Creatinine Clearance 216 mL/min (70-130); Calcium 8.1 mg/dL (7.8-10.44); Carbon Dioxide 26 mmol/L (22-29); Chloride 107 mmol/L (98-107); Estimated GFR 128; Globulin 2.1 g/dL (2.4-3.5); Glucose 101 mg/dL (70-105); Potassium 3.1 mmol/L (3.5-5.1); Protein, Total 5.3 g/dL (6.0-8.3); Sodium 139 mmol/L (136-145)
[2023-01-03] MEDS: Lorazepam 2 MG/ML VIAL SLOW IVP PRN (06:29)
[2023-01-03] MEDS: Sucralfate 1 GM/10 ML UDCUP PO SCH ×2 (06:32→13:36)
[2023-01-03] MEDS ORDERED: Potassium Bicarbonate/Cit Ac 20 MEQ TAB PO SCH (08:00)
[2023-01-03] MEDS ORDERED: Potassium Bicarbonate/Cit Ac 20 MEQ TAB PER TUBE SCH (08:00)
[2023-01-03] MEDS: Potassium Chloride 20 MEQ in Premix 1 BAG IVPB SCH ×2 (08:08→10:59)
[2023-01-03 09:10] VITALS: BP 116/73
[2023-01-03] MEDS: Pantoprazole 40 MG VIAL IVP SCH (09:28)
== END 2023-01-03 14:55 | disposition home or self-care (01) | DRG 638 ==
LOC: ERS 12:35 → IMCU/EMU 14:35 → MSONC 01-01 12:11
PROVIDERS: ADMIT Internal Medicine; ATTEND Internal Medicine
DX: E10.10 Type 1 diabetes mellitus with ketoacidosis without coma (principal); E87.1 Hypo-osmolality and hyponatremia; N17.9 Acute kidney failure, unspecified; E03.9 Hypothyroidism, unspecified; E66.9 Obesity, unspecified; F41.9 Anxiety disorder, unspecified; E87.5 Hyperkalemia; E86.0 Dehydration; E87.6 Hypokalemia; E88.09 Other disorders of plasma-protein metabolism, not elsewhere classified; K29.70 Gastritis, unspecified, without bleeding; K20.90 Esophagitis, unspecified without bleeding; Z79.4 Long term (current) use of insulin; Z90.49 Acquired absence of other specified parts of digestive tract; Z88.2 Allergy status to sulfonamides; Z88.8 Allergy status to other drugs, medicaments and biological substances; Z88.0 Allergy status to penicillin; Z88.1 Allergy status to other antibiotic agents; Z91.040 Latex allergy status; Z91.018 Allergy to other foods; Z79.899 Other long term (current) drug therapy; Z68.36 Body mass index [BMI] 36.0-36.9, adult
CPT/HCPCS: 36415; 36416; 71045; 71275; 74019; 74177; 80048; 80053; 80306; 80307; 81001; 82010; 82805; 83036; 83605; 83690; 83735; 84100; 84484; 84703; 85025; 85379; 93005; 96365; 96366; 96375; C9113; J0780; J1200; J1650; J1815; J2060; J2310; J2405; J2550; J3475; J3480; J3490; J7050; Q9967; S0028

== ENCOUNTER 2023-04-25 22:27 | Emergency (ER) | payer BC ==
[2023-04-25] MEDS ORDERED: Acetaminophen 500 MG TAB ONE (23:29)
[2023-04-25] MEDS ORDERED: Metoclopramide HCl 10 MG TAB ONE (23:31)
== END 2023-04-26 01:00 | disposition home or self-care (01) ==
LOC: ERS 22:27
DX: S06.0X0A Concussion without loss of consciousness, initial encounter (principal); M54.16 Radiculopathy, lumbar region; R93.89 Abnormal findings on diagnostic imaging of other specified body structures; E10.9 Type 1 diabetes mellitus without complications; W01.198A Fall on same level from slipping, tripping and stumbling with subsequent striking against other object, initial encounter
CPT/HCPCS: 70450; 72125

== ENCOUNTER 2023-06-15 07:55 | Emergency (ER) | payer BC ==
[2023-06-15 10:47] LABS: #Basophils Less than 0.03 10x3/uL (0.0-0.2); %Basophils 0.4 % (0.0-1.0); %Eosinophils 2.8 % (0.0-10.0); %Lymphocytes 33.7 % (21.0-51.0); %Monocytes 10.4 % (0.0-10.0); %Neutrophils 52.1 % (42.0-75.0); Hematocrit 33.3 % (36.0-47.0); Hemoglobin 10.5 g/dL (12.0-16.0); Mean Corpuscular HGB CONC 31.5 g/dL (32.0-36.0); Mean Corpuscular Hemoglobin 28.3 pg (27.0-31.0); Mean Corpuscular Volume 89.8 fL (78.0-98.0); Mean Platelet Volume 10.1 fL (7.4-10.4); Platelet Count 207 10x3/uL (130-400); RBC Distribution Width 14.8 % (11.5-14.5); Red Blood Cell (RBC) Count 3.71 mill/uL (4.20-5.40)
[2023-06-15 11:14] LABS: Anion Gap 12 mmol/L (10-20); Globulin 3.4 g/dL (2.4-3.5)
[2023-06-15 11:18] LABS: ALT (SGPT) 31 U/L (8-55); AST (SGOT) 36 U/L (5-34); Albumin 2.8 g/dL (3.5-5.0); Alkaline Phosphatase 143 U/L (40-110); BUN (Urea Nitrogen) 12 mg/dL (7.0-18.7); Bilirubin, Total 0.2 mg/dL (0.2-1.2); Calc. Creatinine Clearance 0 mL/min (70-130); Calcium 8.5 mg/dL (7.8-10.44); Carbon Dioxide 24 mmol/L (22-29); Chloride 105 mmol/L (98-107); Estimated GFR 126; Glucose 68 mg/dL (70-105); Potassium 3.6 mmol/L (3.5-5.1); Protein, Total 6.2 g/dL (6.0-8.3); Sodium 137 mmol/L (136-145)
== END 2023-06-15 12:14 | disposition home or self-care (01) ==
LOC: ERS 07:55
DX: M79.89 Other specified soft tissue disorders (principal); T36.1X5A Adverse effect of cephalosporins and other beta-lactam antibiotics, initial encounter; E10.649 Type 1 diabetes mellitus with hypoglycemia without coma; E66.9 Obesity, unspecified; Z79.4 Long term (current) use of insulin; Z79.899 Other long term (current) drug therapy
CPT/HCPCS: 36415; 36416; 80053; 83880; 85025; 99284; J7512